=== PATIENT | female | born 1955 | race Caucasian/White ===

== ENCOUNTER 2016-12-16 15:36 | Emergency (ER) | payer BC, MEDICARE ==
[2016-12-16 15:43] VITALS: BP 149/84; RESP 22; TEMP 97.8
[2016-12-16] MEDS ORDERED: methylPREDNISolone SOD SUCCI 125 MG/2 ML VIAL IV STA (16:09)
[2016-12-16] MEDS ORDERED: ASPIRIN 325 MG TAB PO STA (16:09)
[2016-12-16] MEDS ORDERED: IPRATROPIUM-ALBUTEROL 3 ML NEB INHALATION STA (16:09)
--- NOTE | 2016-12-16 16:36 | ED ---
General Adult HPI - General Chief complaint: Shortness of Breath Stated complaint: LEOLA Source: patient Mode of arrival: ambulatory Limitations: no limitations - History of Present Illness Initial comments: 61-year-old female with past medical history of asthma presented for evaluation of shortness of breath and wheezes. She states that her symptoms have progressively been worsening over the last month but it acutely worsened over the last couple days. She has tried her breathing treatments at home without any relief. She denies any associated chest pain, recent surgeries, lower extremity cramping swelling or erythema, hemoptysis, or long distance travel. She further states that her associated cough is nonproductive and she has no URI symptoms. - Related Data Home Medications Medication Instructions Recorded Confirmed Albuterol Inhaler [Ventolin 1 - 2 puff INHALATION RT-QID PRN 07/07/14 12/16/16 Inhaler] Albuterol Nebulized [Ventolin 2.5 mg INHALATION RT-QID 12/22/14 12/16/16 Nebulized] Budesonide [Pulmicort] 0.5 mg INHALATION RT-BID 12/22/14 12/16/16 Biotin 5 mg PO DAILY 12/16/16 12/16/16 Ipratropium Nebulized [Atrovent 0.5 mg INHALATION RT-TID 12/16/16 12/16/16 Nebulized] Levothyroxine Sodium [Synthroid] 137 mcg PO DAILY 12/16/16 12/16/16 Montelukast [Singulair] 10 mg PO HS 12/16/16 12/16/16 Morphine Sulfate [Ms Contin] 30 mg PO Q8HR 12/16/16 12/16/16 Valerian Root 100 mg PO HS 12/16/16 12/16/16 tiZANidine [Zanaflex] 4 mg PO Q6H PRN 12/16/16 12/16/16 Previous Rx's Medication Instructions Recorded Doxycycline Hyclate 100 mg PO BID #14 tab 12/16/16 predniSONE 50 mg PO DAILY #5 tab 12/16/16 Allergies Allergy/AdvReac Type Severity Reaction Status Date / Time No Known Allergies Allergy Verified 12/16/16 16:21 Review of Systems ROS Statement: Those systems with pertinent positive or pertinent negative responses have been documented in the HPI. ROS Other: All systems not noted in ROS Statement are negative. Constitutional: Denies: fever, chills Eyes: Denies: eye pain, vision change ENT: Denies: ear pain, throat pain Respiratory: Reports: cough, dyspnea, wheezes. Denies: hemoptysis, stridor Cardiovascular: Denies: chest pain, palpitations Endocrine: Denies: fatigue, polydipsia, polyuria Gastrointestinal: Denies: abdominal pain, nausea, vomiting Genitourinary: Denies: urgency, dysuria Musculoskeletal: Denies: back pain, arthralgia Skin: Denies: rash, lesions Neurological: Denies: headache, weakness Psychiatric: Denies: anxiety, depression Past Medical History Past Medical History: Asthma, Osteoarthritis (OA), Thyroid Disorder Additional Past Medical History / Comment(s): varicose veins, hx migraines, ulcerative colitis, occ uses a cane, History of Any Multi-Drug Resistant Organisms: None Reported Past Surgical History: Back Surgery, Section, Hysterectomy, Orthopedic Surgery Additional Past Surgical History / Comment(s): lew carpal tunnel,neck and back surgeries, CAGE ON BACK, ARTHROSCOPY RIGHT KNEE, PAIN CLINIC PROCEDURES ([facility]), TOTAL RIGHT KNEE Past Anesthesia/Blood Transfusion Reactions: No Reported Reaction Past Psychological History: No Psychological Hx Reported Smoking Status: Former smoker Past Alcohol Use History: Occasional Past Drug Use History: None Reported - Past Family History Mother Family Medical History: Cancer Additional Family Medical History / Comment(s): MELANOMA General Exam Limitations: no limitations General appearance: alert, in no apparent distress Head exam: Present: atraumatic, normocephalic, normal inspection Eye exam: Present: normal appearance, PERRL, EOMI. Absent: scleral icterus, conjunctival injection, periorbital swelling ENT exam: Present: normal exam, mucous membranes moist Neck exam: Present: normal inspection. Absent: tenderness, meningismus, lymphadenopathy Respiratory exam: Present: wheezes. Absent: respiratory distress, rhonchi, stridor, chest wall tenderness, accessory muscle use, decreased breath sounds, prolonged expiratory Cardiovascular Exam: Present: regular rate, normal rhythm, normal heart sounds. Absent: systolic murmur, diastolic murmur, rubs, gallop, clicks GI/Abdominal exam: Present: soft, normal bowel sounds. Absent: distended, tenderness, guarding, rebound, rigid Rectal exam: Present: deferred Extremities exam: Present: normal inspection, full ROM, normal capillary refill. Absent: tenderness, pedal edema, joint swelling, calf tenderness Back exam: Present: normal inspection Neurological exam: Present: alert, oriented X3, CN II-XII intact Psychiatric exam: Present: normal affect, normal mood Skin exam: Present: warm, dry, intact, normal color. Absent: rash Course Vital Signs 12/16/16 12/16/16 12/16/16 15:40 16:59 17:15 Temperature 97.8 F Pulse Rate 93 57 L 60 Respiratory 22 Rate Blood Pressure 149/84 O2 Sat by Pulse 94 L Oximetry EKG Findings - EKG Comments: EKG Findings:: Normal sinus rhythm with a ventricular rate of 96, CHRISTOPHER 162, QRS 76, QT/QTC 344/434 Medical Decision Making - Medical Decision Making 7-year-old female with past medical history of asthma presented for evaluation of shortness of breath and wheezing that has gradually been worsening over the last month but acutely worsened over the last couple days. These have been also trying to her home breathing treatment therapies. On physical examination she has bilateral wheezing throughout lung barajas. There is no accessory muscle usage and the patient does not appear to be in distress. She was giving multiple breathing treatments and steroids and labs revealed no significant abnormalities. Chest x-ray showed no acute process. The patient was reevaluated and breathing treatments had marketed improvement in her respiratory status. She was informed of all results and through shared decision making it was determined that she would be discharged with instructions to follow-up with her primary care physician but to return if her symptoms should worsen or persist. The patient acknowledged an understanding of this information and agreed with this plan of care. - Lab Data Result diagrams: 12/16/16 16:34 12/16/16 16:34 Lab Results 12/16/16 12/16/16 12/16/16 Range/Units 16:34 16:34 16:34 WBC 9.2 (3.8-10.6) k/uL RBC 4.49 (3.80-5.40) m/uL Hgb 14.5 (11.4-16.0) gm/dL Hct 42.4 (34.0-46.0) % MCV 94.5 (80.0-100.0) fL MCH 32.3 (25.0-35.0) pg MCHC 34.2 (31.0-37.0) g/dL RDW 13.1 (11.5-15.5) % Plt Count 376 (150-450) k/uL Neutrophils % 54 % Lymphocytes % 30 % Monocytes % 5 % Eosinophils % 8 % Basophils % 1 % Neutrophils # 5.0 (1.3-7.7) k/uL Lymphocytes # 2.7 (1.0-4.8) k/uL Monocytes # 0.4 (0-1.0) k/uL Eosinophils # 0.7 (0-0.7) k/uL Basophils # 0.1 (0-0.2) k/uL Sodium 142 (137-145) mmol/L Potassium 4.0 (3.5-5.1) mmol/L Chloride 107 (98-107) mmol/L Carbon Dioxide 23 (22-30) mmol/L Anion Gap 12 mmol/L BUN 16 (7-17) mg/dL Creatinine 0.70 (0.52-1.04) mg/dL Est GFR (MDRD) Af Amer >60 (>60 ml/min/1.73 sqM) Est GFR (MDRD) Non-Af >60 (>60 ml/min/1.73 sqM) Glucose 116 H (74-99) mg/dL Calcium 9.5 (8.4-10.2) mg/dL Troponin I (0.000-0.034) ng/mL NT-Pro-B Natriuret Pep 64 pg/mL Influenza Type A RNA (Not Detectd) Influenza Type B (PCR) (Not Detectd) 12/16/16 12/16/16 Range/Units 16:34 16:34 WBC (3.8-10.6) k/uL RBC (3.80-5.40) m/uL Hgb (11.4-16.0) gm/dL Hct (34.0-46.0) % MCV (80.0-100.0) fL MCH (25.0-35.0) pg MCHC (31.0-37.0) g/dL RDW (11.5-15.5) % Plt Count (150-450) k/uL Neutrophils % % Lymphocytes % % Monocytes % % Eosinophils % % Basophils % % Neutrophils # (1.3-7.7) k/uL Lymphocytes # (1.0-4.8) k/uL Monocytes # (0-1.0) k/uL Eosinophils # (0-0.7) k/uL Basophils # (0-0.2) k/uL Sodium (137-145) mmol/L Potassium (3.5-5.1) mmol/L Chloride (98-107) mmol/L Carbon Dioxide (22-30) mmol/L Anion Gap mmol/L BUN (7-17) mg/dL Creatinine (0.52-1.04) mg/dL Est GFR (MDRD) Af Amer (>60 ml/min/1.73 sqM) Est GFR (MDRD) Non-Af (>60 ml/min/1.73 sqM) Glucose (74-99) mg/dL Calcium (8.4-10.2) mg/dL Troponin I <0.012 (0.000-0.034) ng/mL NT-Pro-B Natriuret Pep pg/mL Influenza Type A RNA Not Detected (Not Detectd) Influenza Type B (PCR) Not Detected (Not Detectd) Disposition Clinical Impression: Asthma exacerbation, Wheezing Disposition: HOME SELF-CARE Condition: Stable Instructions: Asthma (ED) Additional Instructions: Please use medication as discussed. Please follow up with family doctor if symptoms have not improved over the next two days. Please return to the emergency room if your symptoms increase or worsen or for any other concerns. Prescriptions: Doxycycline Hyclate 100 mg PO BID #14 tab predniSONE 50 mg PO DAILY #5 tab Referrals: Franco Lagunas MD [Primary Care Provider] - 1-2 days Time of Disposition: 18:07
[2016-12-16 16:41] LABS: Basophils # (A) 0.1 k/uL (0-0.2); Basophils % (A) 1 %; CH 32.5; CHCM 34.6; Eosinophils # (A) 0.7 k/uL (0-0.7); Eosinophils % (A) 8 %; HCT 42.4 % (34.0-46.0); HDW 2.75; HGB 14.5 gm/dL (11.4-16.0); Luc # (Auto) 0.25; Luc % (Auto) 3; Lymphocytes # (A) 2.7 k/uL (1.0-4.8); Lymphocytes % (A) 30 %; MCH 32.3 pg (25.0-35.0); MCHC 34.2 g/dL (31.0-37.0); MCV 94.5 fL (80.0-100.0); Monocytes # (A) 0.4 k/uL (0-1.0); Monocytes % (A) 5 %; Neutrophils % (A) 54 %; RBC 4.49 m/uL (3.80-5.40); RDW 13.1 % (11.5-15.5); WBC 9.2 k/uL (3.8-10.6); WBC (Perox) 9.36
--- NOTE | 2016-12-16 16:44 | XR ---
EXAMINATION TYPE: XR chest 2V DATE OF EXAM: 12/16/2016 4:41 PM COMPARISON: NONE HISTORY: Short of breath TECHNIQUE: Frontal and lateral views of the chest are obtained. FINDINGS: Heart and mediastinum are normal. Lungs are clear. Diaphragm is normal. Cervical spine fus ion surgery is noted. There is no pleural effusion. IMPRESSION: No active cardiopulmonary disease.
[2016-12-16 16:51] LABS: Anion Gap 12 mmol/L; Blood Urea Nitrogen 16 mg/dL (7-17); Calcium 9.5 mg/dL (8.4-10.2); Carbon Dioxide 23 mmol/L (22-30); Chloride 107 mmol/L (98-107); Glucose 116 mg/dL (74-99); Non-African American GFR(MDRD) >60 (>60 ml/min/1.73 sqM); Sodium 142 mmol/L (137-145)
[2016-12-16 17:16] VITALS: PULSE 60
== END 2016-12-16 18:16 | disposition home or self-care (01) ==
LOC: EC 15:36
DX: J45.901 Unspecified asthma with (acute) exacerbation (principal); E07.9 Disorder of thyroid, unspecified; Z79.51 Long term (current) use of inhaled steroids; Z79.899 Other long term (current) drug therapy; Z87.891 Personal history of nicotine dependence
CPT/HCPCS: 99285; 96374; 36415; 94640; 93005; 83880; 80048; 84484; 85025; 87502; 71020; J2930

== ENCOUNTER → 2017-09-09 | Outpatient (CLI) | payer BC, MEDICARE | END | disposition home or self-care (01) | LOC: RADMRIMAIN 08:38 | PROVIDERS: ATTEND Orthopaedic Surgery | DX: Z53.9 Procedure and treatment not carried out, unspecified reason (principal) ==

== ENCOUNTER 2017-10-30 07:31 | Day surgery (SDC) | payer BC, MEDICARE ==
[2017-10-25 16:00] VITALS: BMI 30.9
--- NOTE | 2017-10-29 14:02 | HP ---
HISTORY AND PHYSICAL DATE OF SERVICE: 10/30/2017 Lida Galarza is a 62-year-old patient seen with progressive right shoulder pain. Treatment options were discussed. She elected to proceed with right shoulder arthroscopy. Consent was obtained. Medical clearance was provided by Dr. Franco Lagunas. PAST MEDICAL HISTORY: Hypothyroidism, asthma. PAST SURGICAL HISTORY: Abdominoplasty, section, right knee arthroscopy. DAILY MEDICATIONS: 1. Synthroid. 2. Morphine. ALLERGIES: None reported. SOCIAL HISTORY: Patient denies current tobacco use. PHYSICAL EXAMINATION EVALUATION RIGHT SHOULDER: Flexion 80 degrees, abduction 70 degrees, external rotation is 30 degrees with weakness. Tenderness along the anterolateral acromion rotator cuff insertion site. Impingement sign positive at 90 degrees. Drop-arm sign is positive. Distal neurovascular exam is intact. RIGHT SHOULDER RADIOGRAPHS: Revealed a type 2 anterior acromion. Cystic changes of the tuberosity. IMPRESSION: 1. Right shoulder impingement with rotator cuff tear. 2. Hypothyroidism. 3. Asthma. PLAN: Right shoulder arthroscopy with subacromial decompression, possible arthroscopic rotator cuff repair and debridement. MMODL / IJN: [id number] /
[~2017-10-30 07:31] MED LIST: DEXAMETHASONE SOD PHOSPHATE 10 MG/ML 1 ML VIAL IV ONE; HYDROmorphone 0.5 MG/0.5 ML SYRINGE IVP PRN; LACTATED RINGERS 1,000 ML IV SCH; MIDAZOLAM 2 MG/2 ML VIAL IV PRN; ONDANSETRON 4 MG/2 ML VIAL IVP ONE; ceFAZolin IN SWFI 2 GM/20 ML SYRINGE IVP ONE
[2017-10-30] MEDS ORDERED: LIDOCAINE 1% 20 ML VIAL (10MG/ML) FOR IV START INTRADERMA ONE (08:10)
[2017-10-30] MEDS ORDERED: fentaNYL (PF) 50 MCG/ML 2 ML AMP IV ONE (08:43)
--- NOTE | 2017-10-30 08:49 | P.ONQ ---
Anesthesiology Proc Note - PNB - Peripheral Nerve Block Performed Right Interscalene Single Time Out Performed: Yes (8:43am) Procedure Start Time: 08:44 Procedure Stop Time: 08:56 Indication: Acute Post-Operative Pain, Requested by physician Sedation Type: Sedate with meaningful contact maintained Preparation: Sterile Prep Position: Supine Catheter: None Needle Types: Facet Needle Size: 50mm (2") Needle Gauge: 20 Technique: Ultrasound (15 mls of Ropivacaine 0.5% + 15 mls of Lidocaine with Epi) Adjunct: Epinephrine (see comment for dilution ratio) Blood Aspirated: No Pain Paresthesia on Injection Noted: No Resistance on Injection: Normal Events: Uneventful and Well Tolerated
[2017-10-30] MEDS ORDERED: LIDOCAINE 1% INJ 10MG/ML (20 ML MDV) ONE (10:38)
[2017-10-30] MEDS ORDERED: MIDAZOLAM 2 MG/2 ML VIAL ONE (10:38)
[2017-10-30] MEDS ORDERED: SUCCINYLCHOLINE CHLORIDE 100 MG/5 ML SYR IV ONE (10:38)
[2017-10-30] MEDS ORDERED: PROPOFOL 10 MG/ML 20 ML VIAL IV ONE (10:38)
[2017-10-30] MEDS ORDERED: ROCURONIUM BROMIDE 10 MG/ML 10 ML VIAL IV ONE (10:38)
[2017-10-30] MEDS ORDERED: NEOSTIGMINE 1 MG/ML 10 ML VIAL ONE (10:38)
[2017-10-30] MEDS ORDERED: LIDOCAINE 2%-EPI 1:100,000 20 ML VIAL ONE (10:38)
[2017-10-30] MEDS ORDERED: ROPIVACAINE 5 MG/ML 30 ML VIAL ONE (10:38)
[2017-10-30] MEDS ORDERED: GLYCOPYRROLATE 0.2 MG/ML 2 ML VIAL ONE (10:38)
[2017-10-30] MEDS ORDERED: LACTATED RINGERS 1,000 ML IV ONE (11:44)
--- NOTE | 2017-10-30 12:22 | P.OP ---
Date of Procedure: 10/30/17 Preoperative Diagnosis: Right shoulder impingement Postoperative Diagnosis: 1. Right shoulder rotator cuff tear 2. Right shoulder impingement 3. Right shoulder partial long head biceps tendon tear 4. Right shoulder superficial superior labral tear Procedure(s) Performed: 1. Right shoulder arthroscopic rotator cuff repair 2. Right shoulder arthroscopic subacromial decompression 3. Right shoulder arthroscopic biceps tenotomy 4. Right shoulder arthroscopic debridement labral tear Implants: 2-peek anchors Anesthesia: GETA, regional (Interscalene block) Surgeon: Ollie Amado Clod Puller #1: Matthew Jefferson Estimated Blood Loss (ml): 10 Pathology: none sent Condition: stable Disposition: PACU Indications for Procedure: 62-year-old patient seen with progressive right shoulder pain. After treatment options were discussed, she elected to proceed with arthroscopy. Operative Findings: see description of procedure Description of Procedure: Patient underwent a shoulder block by department of anesthesia. The patient was then taken to the operative suite. The patient underwent a general anesthetic by the department of anesthesia. The patient was placed into a lateral position and secured. There was appropriate padding of the bony prominence. Right shoulder was then prepped and draped in normal sterile orthopedic fashion. We placed the extremity in 10 pounds of longitudinal traction. A posterior incision was now made for a posterior working portal site. The trocar and cannula were inserted into the glenohumeral joint. Arthroscopy was initiated. Spinal needle was now inserted anteriorly, to ascertain the anterior working portal site. An incision was now made in that area, a trocar was inserted followed by a probe. There was superficial tearing of the superior labrum. Partial tearing long head biceps tendon. Mild grade 1 chondromalacia changes of the humeral head with no osteochondral tears. The anterior, inferior and posterior labrum were intact. I performed an arthroscopic biceps tenotomy. I debrided the superficial labral tear down to stable tissue. The residual labrum was found to be stable. Instruments were now removed from the glenohumeral joint. Utilizing the posterior working portal site, the trocar and cannula were inserted into the subacromial space. Arthroscopy initiated. I made an incision 2 fingerbreadths lateral to the acromion. I introduced my trocar followed by my ArthroCare ablator. I now began ablating thick subacromial bursal tissue, which exposed the undersurface of the anterior acromion. This was diminished subacromial space. There was a very prominent anterior acromion. A motorized bur was introduced and a subacromial decompression was performed. I also excised some osteophytes off the inferior aspect of the distal clavicle. The AC joint was visualized and noted to be moderately arthritic, not enough to warrant Juany procedure. I turned my attention to the rotator cuff tendon. There was about a 1 cm tear along the distal supraspinatus area. I debrided the margins down to stable tissue. Once the area was debrided down to good stable tendon tissue the defect measured 1.5-2 cm. It was freely mobile over the footprint. I abraded the footprint with a motorized bur. I introduced 2 everted mattress sutures with good bites of rotator cuff tendon. Once the pulsatile footprint and notices central area that there would be a dogear. I passed the suture loop centrally. I pull the tendon the footprint repair that with one anchor laterally. I then pulled the other 4 limbs of suture over the footprint introduced additional anchor laterally. The compressive tendon along the footprint very nicely. Residual suture limbs were clipped. The repair was probed and found to be stable. I injected 1 mL of UCT intra-articular. Instruments now removed from the portal sites. All portal sites were approximated with nylon suture. Sterile dressings were applied followed by a shoulder immobilizer. Fabian BROOKS assisted with the procedure. The patient was awakened, transferred to a bed, and taken to recovery in stable condition.
[2017-10-30 12:24] VITALS: RESP 16; TEMP 98.6
[2017-10-30] MEDS: MORPHINE SULFATE 4 MG/ML SYRINGE IVP PRN ×3 (12:36→13:13)
[2017-10-30 14:05] VITALS: BP 166/89; PULSE 75
== END 2017-10-30 14:17 | disposition home or self-care (01) ==
LOC: OR 07:31
PROVIDERS: ATTEND Orthopaedic Surgery
DX: M75.101 Unspecified rotator cuff tear or rupture of right shoulder, not specified as traumatic (principal); M75.41 Impingement syndrome of right shoulder; S46.111A Strain of muscle, fascia and tendon of long head of biceps, right arm, initial encounter; S43.401A Unspecified sprain of right shoulder joint, initial encounter; X58.XXXA Exposure to other specified factors, initial encounter; M25.711 Osteophyte, right shoulder; J44.9 Chronic obstructive pulmonary disease, unspecified; E03.9 Hypothyroidism, unspecified; G89.4 Chronic pain syndrome; M19.90 Unspecified osteoarthritis, unspecified site; K21.9 Gastro-esophageal reflux disease without esophagitis; Z98.890 Other specified postprocedural states; Z79.890 Hormone replacement therapy; Z79.891 Long term (current) use of opiate analgesic; Z79.899 Other long term (current) drug therapy; Z79.51 Long term (current) use of inhaled steroids
CPT/HCPCS: 64415

== ENCOUNTER → 2018-02-13 | Outpatient (CLI) | payer BC, MEDICARE ==
--- NOTE | 2018-02-13 09:21 | US ---
EXAMINATION TYPE: US thyroid st tissue head/neck DATE OF EXAM: 02/13/2018 COMPARISON: US thyroid June 22, 2016 CLINICAL HISTORY: R13.10 Swallowing Difficulty, E03.9 Primary hypoth. Patient stated has difficulty s wallowing, hoarse voice, neck fullness GLAND SIZE: Right Lobe: 3.1 x 1.5 x 2.1 cm Overall Parenchyma: heterogenous Left Lobe: 3.8 x 1.2 x 2.0 cm Overall Parenchyma: heterogeneous Isthmus Thickness: 0.4 cm NODULES RIGHT: # of nodules measured on right: 0 LEFT: # of nodules measured on left: 0 ISTHMUS: # of nodules measured in the isthmus: 0 Lobular border and heterogeneous gland is noted bilaterally without any discreet nodule. Bilateral neck scanned, no evidence of lymphadenopathy. IMPRESSION: Heterogeneous small sized thyroid without discrete solid or cystic nodule is redemonstrated. No signi ficant change from prior.
[2018-02-13 09:40] LABS: T4, Free (Free Thyroxine) 1.5 ng/dL (0.78-2.19)
== END ==
LOC: RADUSWWP 08:13
PROVIDERS: ATTEND Internal Medicine Endocrinology, Diabetes & Metabolism
DX: R13.10 Dysphagia, unspecified (principal); E03.9 Hypothyroidism, unspecified
CPT/HCPCS: 36415; 76536; 84439; 84443

== ENCOUNTER → 2018-08-27 | Outpatient (CLI) | payer BC, MEDICARE | END | disposition home or self-care (01) | LOC: LABWHC1 11:29 | PROVIDERS: ATTEND Internal Medicine Critical Care Medicine | DX: J45.909 Unspecified asthma, uncomplicated (principal) | CPT/HCPCS: 36415; 82785; 85008 ==

== ENCOUNTER 2020-07-10 20:40 | Inpatient (IN) | payer BC, MEDICARE ==
--- NOTE | 2020-07-10 21:21 | ED ---
Fever HPI - General Chief Complaint: Shortness of Breath Stated Complaint: + COVID Time Seen by Provider: 07/10/20 21:19 Source: patient, RN notes reviewed, old records reviewed Mode of arrival: ambulatory Limitations: no limitations - History of Present Illness Initial Comments: This is a 64-year-old female DF she has have fever in known history of a p ositive coronavirus. Patient sent in by primary care and tarry to symptoms being short of breath. Patient also has underlying asthma MD Complaint: fever, weakness -: days(s) Temperature Source: subjective Context: multiple patients with similar symptoms Associated Symptoms: chills, rigors, nasal congestion, sore throat, shortness of breath Treatments Prior to Arrival: none, Acetaminophen, Ibuprofen - Related Data Home Medications Medication Instructions Recorded Confirmed Albuterol Nebulized [Ventolin 2.5 mg INHALATION RT-QID PRN 12/22/14 07/10/20 Nebulized] Montelukast [Singulair] 10 mg PO HS 12/16/16 07/10/20 Ergocalciferol (Vitamin D2) 50,000 unit PO FR 10/25/17 07/10/20 [Vitamin D2] Levothyroxine Sodium [Synthroid] 150 mcg PO QAM 09/08/19 07/10/20 Valerian Root 100 - 400 mg PO HS PRN 09/08/19 07/10/20 Albuterol Sulfate [Ventolin HFA] 2 puff INHALATION RT-Q6H PRN 07/10/20 07/10/20 Budesonide-Formot 160-4.5 Mcg 2 puff INHALATION RT-BID PRN 07/10/20 07/10/20 [Symbicort 160-4.5 Mcg Inhaler] Fluticasone/Salmeterol [Advair 1 puff INHALATION RT-BID 07/10/20 07/10/20 500-50 Diskus] Morphine Sulfate [Morphine Sulfate 15 mg PO TID PRN 07/10/20 07/10/20 ER] diphenhydrAMINE [Benadryl] 25 mg PO HS 07/10/20 07/10/20 tiZANidine HCL [Zanaflex] 4 mg PO Q8HR PRN 07/10/20 07/10/20 Previous Rx's Medication Instructions Recorded Ascorbic Acid [Vitamin C] 500 mg PO DAILY tab 07/13/20 Azithromycin [Zithromax] 500 mg PO DAILY #4 tab 07/13/20 Zinc Sulfate [Orazinc] 220 mg PO DAILY cap 07/13/20 dexAMETHasone [Hexadrol] 6 mg PO DAILY #7 tablet 07/13/20 predniSONE 2.5 mg PO DAILY #0 07/13/20 Allergies Allergy/AdvReac Type Severity Reaction Status Date / Time vitamin E (d-alpha Allergy Rash/Hives Verified 07/10/20 22:36 tocopherol) Review of Systems ROS Statement: Those systems with pertinent positive or pertinent negative responses have been documented in the HPI. ROS Other: All systems not noted in ROS Statement are negative. Past Medical History Past Medical History: Asthma, Osteoarthritis (OA), Thyroid Disorder Additional Past Medical History / Comment(s): Varicose veins, hx migraines 20 yrs ago, hx ulcerative colitis, occ uses a cane. constipation, told kidney stones in past, PMR(polymyalgia rheumatica)-left hand and index finger swollen, rectal bleeding for past couple months-(2-3 times) History of Any Multi-Drug Resistant Organisms: None Reported Past Surgical History: Back Surgery, Section, Hysterectomy, Joint Replacement, Orthopedic Surgery, Tonsillectomy Additional Past Surgical History / Comment(s): lew carpal tunnel, neck surgery, 4 back surgeries/fusion-CAGE ON BACK, ARTHROSCOPY RIGHT KNEE, PAIN CLINIC PROCEDURES , TOTAL RIGHT KNEE., arthroscopic rt shoulder, Past Anesthesia/Blood Transfusion Reactions: No Reported Reaction Past Psychological History: No Psychological Hx Reported Smoking Status: Former smoker Past Alcohol Use History: Rare Past Drug Use History: Marijuana - Past Family History Brother(s) Family Medical History: Cancer Additional Family Medical History / Comment(s): Melanoma Sister(s) Family Medical History: Cancer Additional Family Medical History / Comment(s): Cervical Cancer Mother Family Medical History: Cancer Additional Family Medical History / Comment(s): MELANOMA Father Family Medical History: COPD General Exam Limitations: no limitations General appearance: alert, in no apparent distress, anxious Head exam: Present: atraumatic, normocephalic, normal inspection Eye exam: Present: normal appearance, PERRL, EOMI. Absent: scleral icterus, conjunctival injection, periorbital swelling ENT exam: Present: normal exam, mucous membranes moist Neck exam: Present: normal inspection. Absent: tenderness, meningismus, lymphadenopathy Respiratory exam: Present: respiratory distress, wheezes, accessory muscle use, decreased breath sounds, prolonged expiratory. Absent: rales, rhonchi, stridor Cardiovascular Exam: Present: regular rate, normal rhythm, normal heart sounds. Absent: systolic murmur, diastolic murmur, rubs, gallop, clicks GI/Abdominal exam: Present: soft, normal bowel sounds. Absent: distended, tenderness, guarding, rebound, rigid Extremities exam: Present: normal inspection, full ROM, normal capillary refill. Absent: tenderness, pedal edema, joint swelling, calf tenderness Back exam: Present: normal inspection Neurological exam: Present: alert, oriented X3, CN II-XII intact Psychiatric exam: Present: normal affect, normal mood Skin exam: Present: warm, dry, intact, normal color. Absent: rash Course Vital Signs 07/10/20 07/10/20 07/11/20 20:53 21:44 06:08 Temperature 100.1 F H Pulse Rate 85 79 Respiratory 22 24 18 Rate Blood Pressure 143/83 142/79 O2 Sat by Pulse 90 L 97 Oximetry 07/11/20 07/11/20 07/11/20 09:01 09:02 17:23 Temperature 99.0 F 99.0 F Pulse Rate 71 72 Respiratory 18 18 18 Rate Blood Pressure 134/77 141/75 O2 Sat by Pulse 95 92 L Oximetry - Reevaluation(s) Reevaluation #1: Medical records reviewed No improvement of symptoms here in the ER Spoke with patient regarding findings and questions are answered Patient still short of breath Medical Decision Making - Medical Decision Making 64 female DF for severe shortness of breath asthma with coronavirus. Patient admitted for breathing treatments and cardiopulmonary resuscitation - Lab Data Result diagrams: 07/10/20 21:55 07/10/20 21:55 Lab Results 07/10/20 07/10/20 07/10/20 Range/Units 21:55 21:55 21:55 WBC 5.6 (3.8-10.6) k/uL RBC 4.15 (3.80-5.40) m/uL Hgb 13.6 (11.4-16.0) gm/dL Hct 40.2 (34.0-46.0) % MCV 97.0 (80.0-100.0) fL MCH 32.9 (25.0-35.0) pg MCHC 33.9 (31.0-37.0) g/dL RDW 12.5 (11.5-15.5) % Plt Count 228 (150-450) k/uL Neutrophils % 61 % Lymphocytes % 30 % Monocytes % 5 % Eosinophils % 2 % Basophils % 2 % Neutrophils # 3.4 (1.3-7.7) k/uL Lymphocytes # 1.7 (1.0-4.8) k/uL Monocytes # 0.3 (0-1.0) k/uL Eosinophils # 0.1 (0-0.7) k/uL Basophils # 0.1 (0-0.2) k/uL PT 9.5 (9.0-12.0) sec INR 0.9 (<1.2) APTT 23.8 (22.0-30.0) sec Sodium 139 (137-145) mmol/L Potassium 4.2 (3.5-5.1) mmol/L Chloride 106 (98-107) mmol/L Carbon Dioxide 28 (22-30) mmol/L Anion Gap 5 mmol/L BUN 22 H (7-17) mg/dL Creatinine 0.68 (0.52-1.04) mg/dL Est GFR (CKD-EPI)AfAm >90 (>60 ml/min/1.73 sqM) Est GFR (CKD-EPI)NonAf >90 (>60 ml/min/1.73 sqM) Glucose 110 H (74-99) mg/dL Plasma Lactic Acid Boyd (0.7-2.0) mmol/L Calcium 8.4 (8.4-10.2) mg/dL Magnesium 1.9 (1.6-2.3) mg/dL Ferritin 118.3 (10.0-291.0) ng/mL Total Bilirubin 0.3 (0.2-1.3) mg/dL AST 42 H (14-36) U/L ALT 31 (4-34) U/L Alkaline Phosphatase 91 (38-126) U/L Lactate Dehydrogenase 538 (313-618) U/L C-Reactive Protein 19.2 H (<10.0) mg/L Total Protein 6.6 (6.3-8.2) g/dL Albumin 3.7 (3.5-5.0) g/dL Procalcitonin (0.02-0.09) ng/mL 07/10/20 07/10/20 Range/Units 21:55 21:55 WBC (3.8-10.6) k/uL RBC (3.80-5.40) m/uL Hgb (11.4-16.0) gm/dL Hct (34.0-46.0) % MCV (80.0-100.0) fL MCH (25.0-35.0) pg MCHC (31.0-37.0) g/dL RDW (11.5-15.5) % Plt Count (150-450) k/uL Neutrophils % % Lymphocytes % % Monocytes % % Eosinophils % % Basophils % % Neutrophils # (1.3-7.7) k/uL Lymphocytes # (1.0-4.8) k/uL Monocytes # (0-1.0) k/uL Eosinophils # (0-0.7) k/uL Basophils # (0-0.2) k/uL PT (9.0-12.0) sec INR (<1.2) APTT (22.0-30.0) sec Sodium (137-145) mmol/L Potassium (3.5-5.1) mmol/L Chloride (98-107) mmol/L Carbon Dioxide (22-30) mmol/L Anion Gap mmol/L BUN (7-17) mg/dL Creatinine (0.52-1.04) mg/dL Est GFR (CKD-EPI)AfAm (>60 ml/min/1.73 sqM) Est GFR (CKD-EPI)NonAf (>60 ml/min/1.73 sqM) Glucose (74-99) mg/dL Plasma Lactic Acid Boyd 0.8 (0.7-2.0) mmol/L Calcium (8.4-10.2) mg/dL Magnesium (1.6-2.3) mg/dL Ferritin (10.0-291.0) ng/mL Total Bilirubin (0.2-1.3) mg/dL AST (14-36) U/L ALT (4-34) U/L Alkaline Phosphatase (38-126) U/L Lactate Dehydrogenase (313-618) U/L C-Reactive Protein (<10.0) mg/L Total Protein (6.3-8.2) g/dL Albumin (3.5-5.0) g/dL Procalcitonin 0.04 (0.02-0.09) ng/mL - EKG Data -: EKG Interpreted by Me (EKG is sinus rhythm 92 NC 166 QRS 76 QTC 413) Critical Care Time Critical Care Time: Yes Total Critical Care Time: 31 Disposition Clinical Impression: Asthma with acute exacerbation, COVID-19, Hypoxia Disposition: ADMITTED IP TO THIS HOSP Condition: Fair Is patient prescribed a controlled substance at d/c from ED?: No
--- NOTE | 2020-07-10 22:11 | XR ---
EXAMINATION TYPE: XR chest 1V portable DATE OF EXAM: 07/10/2020 COMPARISON: 07/10/2017 HISTORY: Short of breath TECHNIQUE: FINDINGS: There is some linear density left midlung. The other lung barajas are clear. Heart size is n ormal. There are no hilar masses. There is no pleural effusion. IMPRESSION: Left side mild subsegmental atelectasis or scarring. Normal heart. There is not a signifi cant change compared to old exam.
[2020-07-10 22:15] LABS: Basophils # (A) 0.1 k/uL (0-0.2); Basophils % (A) 2 %; Eosinophils # (A) 0.1 k/uL (0-0.7); Eosinophils % (A) 2 %; HCT 40.2 % (34.0-46.0); HGB 13.6 gm/dL (11.4-16.0); Lymphocytes # (A) 1.7 k/uL (1.0-4.8); Lymphocytes % (A) 30 %; MCH 32.9 pg (25.0-35.0); MCHC 33.9 g/dL (31.0-37.0); Mean Platelet Volume 7.5; Monocytes # (A) 0.3 k/uL (0-1.0); Monocytes % (A) 5 %; Neutrophils # (A) 3.4 k/uL (1.3-7.7); Neutrophils % (A) 61 %; Platelet Count 228 k/uL (150-450); RBC 4.15 m/uL (3.80-5.40); RDW 12.5 % (11.5-15.5); WBC 5.6 k/uL (3.8-10.6)
[2020-07-10 22:16] LABS: INR 0.9 (<1.2); Partial Thromboplastin Time 23.8 sec (22.0-30.0); Prothrombin Time 9.5 sec (9.0-12.0)
[2020-07-10 22:18] LABS: ALT 31 U/L (4-34); AST 42 U/L (14-36); African American GFR (CKD) >90 (>60 ml/min/1.73 sqM); Albumin 3.7 g/dL (3.5-5.0); Alkaline Phosphatase 91 U/L (38-126); Anion Gap 5 mmol/L; Blood Urea Nitrogen 22 mg/dL (7-17); C Reactive Protein 19.2 mg/L (<10.0); Calcium 8.4 mg/dL (8.4-10.2); Carbon Dioxide 28 mmol/L (22-30); Chloride 106 mmol/L (98-107); Glucose 110 mg/dL (74-99); LDH 538 U/L (313-618); Magnesium 1.9 mg/dL (1.6-2.3); Non-African American GFR(CKD) >90 (>60 ml/min/1.73 sqM); Potassium 4.2 mmol/L (3.5-5.1); Sodium 139 mmol/L (137-145); Total Bilirubin 0.3 mg/dL (0.2-1.3); Total Protein 6.6 g/dL (6.3-8.2)
[2020-07-10] MEDS ORDERED: ALBUTEROL HFA INHALER INHALATION STA (22:48)
[2020-07-10] MEDS ORDERED: DEXAMETHASONE SOD PHOSPHATE 10 MG/ML 1 ML VIAL IV STA (22:48)
[2020-07-10] MEDS: SODIUM CHLORIDE 0.9% 1,000 ML IV SCH (23:08)
[2020-07-11] MEDS: ALBUTEROL HFA INHALER INHALATION SCH ×4 (08:13→19:50)
[2020-07-11] MEDS ORDERED: tiZANidine 4 MG TAB PO PRN (09:20)
[2020-07-11] MEDS ORDERED: ALBUTEROL HFA INHALER INHALATION PRN (09:20)
--- NOTE | 2020-07-11 10:00 | P.HPIM ---
History of Present Illness H&P Date: 07/11/20 Chief Complaint: Severe dyspnea and shortness of breath, fever and chills, Covid 19 infectio 63-year-old female one of my office patient with multiple medical problem known to have history of advanced COPD history of hypothyroidism history of from hypertension chronic lower back pain and chronic pain syndrome was seen Dr. Chapman, pulmonary as an outpatient patient called the office with concern about exposure to Covid 19 and one of the restaurant and she was tested as an outpatient positive on Saturday. Patient's called last night with concern that she is having severe hypoxia shortness of breath with low pulse ox with increased cough and worsening GI symptoms. Patient was seen in the emergency department with mild hypoxia and mild symptoms, chest x-ray showed left-sided mild subsegmental atelectasis or scarring with normal heart there is no sign of change from an old exam still shows questionable of left lower lobe pneumonia. Patient marker for to Covid came back stable at this time. Patient was started on Decadron along with vitamins for the Covid coverage and started on Lovenox subcutaneous as an anticoagulation patient will be seen pulmonary we'll continue updraft treatment along with inhaler continue oxygen supplement and support. Review of Systems CONSTITUTIONAL: Well-developed no acute respiratory distress. EYES: No icterus sclerae, no conjunctivitis. EARS, NOSE, MOUTH, THROAT, and FACE: No sore throat, lymphadenopathy, carotid bruits or deformity. RESPIRATORY: Positive shortness of breath cough wheezes with recent Covid positive from this week. CARDIOVASCULAR: No CP, Palpitation, PND, Orthopnea, or angina. GASTROINTESTINAL: No Abd pain, Nausea or vomiting, no Diarrhea or constipation, No GI Bleed, no distention or masses. GENITOURINARY: Negative for Hematuria or UTI, no kidney stones. INTEGUMENT/BREAST: Negative for any muscular injury with mild osteoarthritis.. Generalized arthralgia and myalgia with severe back pain. HEMATOLOGIC/LYMPHATIC: Negative for bleed or purpura. MUSCULOSKELTAL: Negative for Myalgia or arthralgia. NEURLOGICAL: No LOC, Sz or syncope, blurred vision dizziness or abnormality.. BEHAVIORAL/PSYCH: Negative. ENDOCRINE: Negative. Past Medical History Past Medical History: Asthma, Osteoarthritis (OA), Thyroid Disorder Additional Past Medical History / Comment(s): Varicose veins, hx migraines 20 yrs ago, hx ulcerative colitis, occ uses a cane. constipation, told kidney stones in past, PMR(polymyalgia rheumatica)-left hand and index finger swollen, rectal bleeding for past couple months-(2-3 times) History of Any Multi-Drug Resistant Organisms: None Reported Past Surgical History: Back Surgery, Section, Hysterectomy, Joint Replacement, Orthopedic Surgery, Tonsillectomy Additional Past Surgical History / Comment(s): lew carpal tunnel, neck surgery, 4 back surgeries/fusion-CAGE ON BACK, ARTHROSCOPY RIGHT KNEE, PAIN CLINIC PROCEDURES , TOTAL RIGHT KNEE., arthroscopic rt shoulder, Past Anesthesia/Blood Transfusion Reactions: No Reported Reaction Past Psychological History: No Psychological Hx Reported Smoking Status: Former smoker Past Alcohol Use History: Rare Past Drug Use History: Marijuana - Past Family History Brother(s) Family Medical History: Cancer Additional Family Medical History / Comment(s): Melanoma Sister(s) Family Medical History: Cancer Additional Family Medical History / Comment(s): Cervical Cancer Mother Family Medical History: Cancer Additional Family Medical History / Comment(s): MELANOMA Medications and Allergies Home Medications Medication Instructions Recorded Confirmed Type Albuterol Nebulized [Ventolin 2.5 mg INHALATION RT-QID PRN 12/22/14 07/10/20 History Nebulized] Montelukast [Singulair] 10 mg PO HS 12/16/16 07/10/20 History Ergocalciferol (Vitamin D2) 50,000 unit PO FR 10/25/17 07/10/20 History [Vitamin D2] Levothyroxine Sodium [Synthroid] 150 mcg PO QAM 09/08/19 07/10/20 History Valerian Root 100 - 400 mg PO HS PRN 09/08/19 07/10/20 History Albuterol Sulfate [Ventolin HFA] 2 puff INHALATION RT-Q6H PRN 07/10/20 07/10/20 History Budesonide-Formot 160-4.5 Mcg 2 puff INHALATION RT-BID PRN 07/10/20 07/10/20 History [Symbicort 160-4.5 Mcg Inhaler] Fluticasone/Salmeterol [Advair 1 puff INHALATION RT-BID 07/10/20 07/10/20 History 500-50 Diskus] Morphine Sulfate [Morphine Sulfate 15 mg PO TID PRN 07/10/20 07/10/20 History ER] diphenhydrAMINE [Benadryl] 25 mg PO HS 07/10/20 07/10/20 History predniSONE 2.5 mg PO DAILY 07/10/20 07/10/20 History tiZANidine HCL [Zanaflex] 4 mg PO Q8HR PRN 07/10/20 07/10/20 History Allergies Allergy/AdvReac Type Severity Reaction Status Date / Time vitamin E (d-alpha Allergy Rash/Hives Verified 07/10/20 22:36 tocopherol) Physical Exam Vitals: Vital Signs Temp Pulse Resp BP Pulse Ox 07/11/20 09:02 18 07/11/20 09:01 99.0 F 71 18 134/77 95 07/11/20 06:08 79 18 142/79 97 07/10/20 21:44 24 07/10/20 20:53 100.1 F H 85 22 143/83 90 L Intake and Output 07/10/20 07/11/20 07/11/20 22:59 06:59 14:59 Other: Weight 81.647 kg General Appearance: Alert, cooperative, no distress, appears stated age. Neck HEENT: Supple, no lymphadenopathy, no thyroid enlargement, no carotid bruits. Lungs: Clear to auscultation without crackles or wheezes no rhonchi, no deformity. Chest Wall: Chest wall normal expansion with deep inspiration no tenderness and no deformity was found on exam, no costochondral pain or discomfort. Heart: Regular rate and rhythm, S1, S2 normal, no murmur, rub or gallop. Back: Symmetric, no curvature, ROM normal, no CVA tenderness. Abdomen: Soft, non-tender, bowel sounds active all four quadrants, no masses, no organomegaly. Extremities: Extremities normal, atraumatic, no cyanosis or edema. Pulses: 2+ and symmetric. Skin: Skin color, texture, tugor normal, no rashes or lesions. Neurologic: Alert oriented x3 cranial nerves II through XII intact, no motor deficit, no abnormal balance or gait. Results CBC & Chem 7: 07/10/20 21:55 07/10/20 21:55 Labs: Abnormal Lab Results - Last 24 Hours (Table) 07/10/20 Range/Units 21:55 BUN 22 H (7-17) mg/dL Glucose 110 H (74-99) mg/dL AST 42 H (14-36) U/L C-Reactive Protein 19.2 H (<10.0) mg/L Thrombosis Risk Factor Assmnt - DVT/VTE Prophylaxis DVT/VTE Prophylaxis: Pharmacologic Prophylaxis ordered, Mechanical Prophylaxis ordered Assessment and Plan Assessment: 1 severe dyspnea and shortness of breath: Patient be hospitalized continue c urrent management with antibiotics, Decadron, oxygen, pulmonary consultation. 2 left-sided pneumonia: Could be Covid addition to community-acquired pneumonia with patient history of COPD patient will be on azithromycin and Rocephin and whether she needs to be started on a Covid antiviral coverage will be left up to pulmonary. 3 Covid 19: Test was positive on Saturday and patient started having hypoxia and more symptom this time she'll be in the hospital for the next few days on Decadron and anticoagulation along with multivitamins antiviral medication to be evaluated decided by pulmonary. 4 advance COPD: Patient has been on prednisone along with Symbicort and DuoNeb continue medication. 5 chronic pain management: Has been on morphine sulfate 15 mg 3 times a day along with Zanaflex 4 mg every 8 hours. 6 hypothyroidism: Continue levothyroxine 150 g daily. 7 vitamin D deficiency: Remain on vitamin D 50,000 units every 2 weeks. 8 hyperglycemia: Accu-Chek with sliding scale coverage and be done. 9 GI prophylaxis: Patient be on Pepcid 20 mg daily. 10 DVT prophylaxis: Patient will be on Lovenox for milligrams subcutaneous daily. CODE STATUS: Full code. Admit patient to the inpatient service for more than 2 night stay.
[2020-07-11 10:20] LABS: Ferritin 118.3 ng/mL (10.0-291.0)
[2020-07-11] MEDS: dexAMETHasone 2 MG TAB PO SCH (10:40)
[2020-07-11] MEDS: ASCORBIC ACID 500 MG TAB PO SCH (10:40)
[2020-07-11] MEDS: ZINC SULFATE 220 MG CAP PO SCH (10:41)
[2020-07-11] MEDS: CHOLECALCIFEROL 1,000 UNIT TAB PO SCH (10:41)
[2020-07-11] MEDS ORDERED: LEVOTHYROXINE 75 MCG TAB PO STA (10:50)
[2020-07-11] MEDS: ENOXAPARIN 40 MG/0.4 ML SYRINGE SQ SCH (10:52)
[2020-07-11] MEDS: MORPHINE SULFATE ER 15 MG TABLET PO PRN ×2 (11:34→20:46)
[2020-07-11] MEDS: SODIUM CHLORIDE 0.9% 1,000 ML IV SCH ×2 (17:14→20:37)
[2020-07-11] MEDS: SYMBICORT 160-4.5 MCG INHALER INHALATION SCH (19:50)
[2020-07-11] MEDS ORDERED: FLUTICASONE INHALATION SCH (20:00)
[2020-07-11] MEDS ORDERED: SALMETEROL INHALATION SCH (20:00)
[2020-07-11] MEDS: diphenhydrAMINE 25 MG CAP PO SCH (20:38)
[2020-07-11] MEDS: MONTELUKAST 10 MG TAB PO SCH (20:38)
--- NOTE | 2020-07-11 23:19 | P.CONS ---
History of Present Illness - Reason for Consult Consult date: 07/11/20 Covid Requesting physician: Franco Lagunas - Chief Complaint Shortness of breath and cough x few days - History of Present Illness Patient is a 64-year-old female with a past medical history significant for advanced COPD hypothyroidism patient presented to the ER with concern for increasing shortness of breath and low O2 sats apparently the patient was at one of the restaurant where one of the patient tested positive for covid, patient is complaining of feeling weak and tired and no energy, the patient denies having any chest pain or shortness of breath with exertion patient also have a cough which is mild to moderate intensity no hemoptysis and no pleuritic chest pain some nausea but no vomiting no abdominal pain or diarrhea with this into the patient was evaluated by the ER physician on arrival to the ER, the patient did have low-grade fever 100.1 patient is currently satting 97% on room patient did have a normal white count with no lymphopenia, the patient did have a normal creatinine and AST is 42 CRP is 19.2 Procalcitonin was 0.04, patient is x-ray did not show any significant change compared oral exam patient has been admitted to the hospital, patient had been started on zinc dexamethasone Lovenox along with bronchodilator infection disease was consulted for further management Review of Systems Positive point has been mentioned in the HPI rest of the systems are negative Past Medical History Past Medical History: Asthma, Osteoarthritis (OA), Thyroid Disorder Additional Past Medical History / Comment(s): Polymyalgia rheumatica-has edema several places, generalized arthritis, migraines many years ago, ulcerative colitis, lower GI bleed, constipation, R leg varicosities. History of Any Multi-Drug Resistant Organisms: None Reported Past Surgical History: Back Surgery, Section, Hysterectomy, Joint Replacement, Orthopedic Surgery, Tonsillectomy Additional Past Surgical History / Comment(s): Multiple back surgeries/cage/fusion, cervical surgery, total R knee arthroplasty, R shoulder arthroscopic surgery, bilateral carpal tunnel releases, pain clinic procedures, colonoscopy. Past Anesthesia/Blood Transfusion Reactions: No Reported Reaction Smoking Status: Former smoker - Past Family History Brother(s) Family Medical History: Cancer Additional Family Medical History / Comment(s): Melanoma Sister(s) Family Medical History: Cancer Additional Family Medical History / Comment(s): Cervical Cancer Mother Family Medical History: Cancer, COPD Additional Family Medical History / Comment(s): MELANOMA Father Family Medical History: COPD Medications and Allergies Home Medications Medication Instructions Recorded Confirmed Type Albuterol Nebulized [Ventolin 2.5 mg INHALATION RT-QID PRN 12/22/14 07/10/20 History Nebulized] Montelukast [Singulair] 10 mg PO HS 12/16/16 07/10/20 History Ergocalciferol (Vitamin D2) 50,000 unit PO FR 10/25/17 07/10/20 History [Vitamin D2] Levothyroxine Sodium [Synthroid] 150 mcg PO QAM 09/08/19 07/10/20 History Valerian Root 100 - 400 mg PO HS PRN 09/08/19 07/10/20 History Albuterol Sulfate [Ventolin HFA] 2 puff INHALATION RT-Q6H PRN 07/10/20 07/10/20 History Budesonide-Formot 160-4.5 Mcg 2 puff INHALATION RT-BID PRN 07/10/20 07/10/20 History [Symbicort 160-4.5 Mcg Inhaler] Fluticasone/Salmeterol [Advair 1 puff INHALATION RT-BID 07/10/20 07/10/20 History 500-50 Diskus] Morphine Sulfate [Morphine Sulfate 15 mg PO TID PRN 07/10/20 07/10/20 History ER] diphenhydrAMINE [Benadryl] 25 mg PO HS 07/10/20 07/10/20 History predniSONE 2.5 mg PO DAILY 07/10/20 07/10/20 History tiZANidine HCL [Zanaflex] 4 mg PO Q8HR PRN 07/10/20 07/10/20 History Allergies Allergy/AdvReac Type Severity Reaction Status Date / Time vitamin E (d-alpha Allergy Rash/Hives Verified 07/10/20 22:36 tocopherol) Physical Exam Vitals: Vital Signs Temp Pulse Resp BP Pulse Ox 07/11/20 09:02 18 07/11/20 09:01 99.0 F 71 18 134/77 95 07/11/20 06:08 79 18 142/79 97 07/10/20 21:44 24 07/10/20 20:53 100.1 F H 85 22 143/83 90 L Intake and Output 07/11/20 07/11/20 07/11/20 06:59 14:59 22:59 Other: Weight 81.647 kg GENERAL DESCRIPTION: Middle-aged female lying in bed, no distress. No tachypnea or accessory muscle of respiration use. HEENT: Shows Pallor , no scleral icterus. Oral mucous membrane is dry. No pharyngeal erythema or thrush NECK: Trachea central, no thyromegaly. LUNGS: Unlabored breathing. Decreased intensity of breath sounds. No wheeze or crackle. HEART: S1, S2, regular rate and rhythm. No loud murmur ABDOMEN: Soft, no tenderness , guarding or rigidity, no organomegaly EXTREMITIES: No edema of feet. SKIN: No rash, no masses palpable. NEUROLOGICAL: The patient is awake, alert, oriented x3, mood and affect normal. Results CBC & Chem 7: 07/10/20 21:55 07/10/20 21:55 Labs: Abnormal Lab Results - Last 24 Hours (Table) 07/10/20 Range/Units 21:55 BUN 22 H (7-17) mg/dL Glucose 110 H (74-99) mg/dL AST 42 H (14-36) U/L C-Reactive Protein 19.2 H (<10.0) mg/L Assessment and Plan Assessment: 1- patient presented to the hospital with increasing shortness of breath or cough in this patient who did have low-grade fever however no significant hypoxemia patient did not have any lymphopenia and CRP that significantly elevated either and a chest x-ray was negative for any acute infiltrate (1) COVID-19 Current Visit: Yes Status: Acute Code(s): U07.1 - COVID-19 SNOMED Code(s): 037740260 Plan: 1- we will repeat her inflammatory markers in the morning and a repeat chest x- ray 2-patient to continue with Lovenox dexamethasone and zinc add Zithromax 3-droplet isolation and respiratory support We will follow on clinical condition and cultures to further adjust medication if needed Thank you for this consultation will follow this patient with you Time with Patient: Greater than 30
[2020-07-12] MEDS: SODIUM CHLORIDE 0.9% 1,000 ML IV SCH ×3 (04:43→22:07)
[2020-07-12] MEDS: LEVOTHYROXINE 75 MCG TAB PO SCH (05:18)
[2020-07-12] MEDS: ASCORBIC ACID 500 MG TAB PO SCH (07:56)
[2020-07-12] MEDS: ZINC SULFATE 220 MG CAP PO SCH (07:56)
[2020-07-12] MEDS: ENOXAPARIN 40 MG/0.4 ML SYRINGE SQ SCH (07:56)
[2020-07-12] MEDS: AZITHROMYCIN 500 MG TAB PO SCH (07:57)
[2020-07-12] MEDS: dexAMETHasone 2 MG TAB PO SCH (07:57)
[2020-07-12] MEDS: CHOLECALCIFEROL 1,000 UNIT TAB PO SCH (07:57)
--- NOTE | 2020-07-12 08:36 | XR ---
EXAMINATION TYPE: XR chest 1V portable DATE OF EXAM: 07/12/2020 HISTORY: Shortness of breath. COMPARISON: 07/10/2020 TECHNIQUE: Single view of the chest is submitted. FINDINGS: Demonstrated are scattered senescent parenchymal change. There is no evidence for focal infiltrate. Linear areas of atelectasis left mid lung zone. The heart is stable. Hilar and mediastinal structures are within normal limits. Degenerative changes are seen of the dorsal spine. IMPRESSION: 1. Chronic changes without evidence for acute pulmonary disease.
[2020-07-12 11:16] LABS: C Reactive Protein 0.7 mg/dL (0.0-0.8)
[2020-07-12] MEDS: SYMBICORT 160-4.5 MCG INHALER INHALATION SCH ×2 (11:20→21:29)
[2020-07-12] MEDS: ALBUTEROL HFA INHALER INHALATION SCH ×4 (11:20→21:29)
[2020-07-12] MEDS: MORPHINE SULFATE ER 15 MG TABLET PO PRN ×2 (12:51→21:12)
--- NOTE | 2020-07-12 12:52 | P.PN ---
Subjective Progress Note Date: 07/12/20 HISTORY OF PRESENT ILLNESS 63-year-old female one of my office patient with multiple medical problem known to have history of advanced COPD history of hypothyroidism history of from hypertension chronic lower back pain and chronic pain syndrome was seen Dr. Chapman, pulmonary as an outpatient patient called the office with concern about exposure to Covid 19 and one of the restaurant and she was tested as an outpatient positive on Saturday. Patient's called last night with concern that she is having severe hypoxia shortness of breath with low pulse ox with increased cough and worsening GI symptoms. Patient was seen in the emergency department with mild hypoxia and mild symptoms, chest x-ray showed left-sided mild subsegmental atelectasis or scarring with normal heart there is no sign of change from an old exam still shows questionable of left lower lobe pneumonia. Patient marker for to Covid came back stable at this time. Patient was started on Decadron along with vitamins for the Covid coverage and started on Lovenox subcutaneous as an anticoagulation patient will be seen pulmonary we'll continue updraft treatment along with inhaler continue oxygen supplement and support. 07/12: Patient states that she is feeling better today. Breathing status seems to be stable. She has been seen by infectious disease with plan to continue current medications isolation. Repeat chest x-ray reveals chronic changes without evidence of acute pulmonary disease. Pulmonary consult in place. She has been afebrile, heart rate 68, blood pressure 128/73, pulse ox 94% on room air. D-dimer 1. LDH 247, C-reactive protein 0.7, pro calcitonin 0.02. Patient was requesting to go home but she is agreeable to stay for 1 more night. Plan is to monitor patient overnight and if she remains stable, discharge home tomorrow REVIEW OF SYSTEMS CONSTITUTIONAL: Well-developed no acute respiratory distress. Denies fever. EYES: No icterus sclerae, no conjunctivitis. EARS, NOSE, MOUTH, THROAT, and FACE: No sore throat, lymphadenopathy, carotid br uits or deformity. RESPIRATORY: Positive shortness of breath cough wheezes with recent Covid positive from this week. CARDIOVASCULAR: No CP, Palpitation, PND, Orthopnea, or angina. GASTROINTESTINAL: No Abd pain, Nausea or vomiting, no Diarrhea or constipation, No GI Bleed, no distention or masses. GENITOURINARY: Negative for Hematuria or UTI, no kidney stones. INTEGUMENT/BREAST: Negative for any muscular injury with mild osteoarthritis.. Generalized arthralgia and myalgia with severe back pain. HEMATOLOGIC/LYMPHATIC: Negative for bleed or purpura. MUSCULOSKELTAL: Negative for Myalgia or arthralgia. NEURLOGICAL: No LOC, Sz or syncope, blurred vision dizziness or abnormality.. BEHAVIORAL/PSYCH: Negative. ENDOCRINE: Negative. PHYSICAL EXAMINATION General Appearance: Alert, cooperative, no distress, appears stated age. Neck HEENT: Supple, no lymphadenopathy, no thyroid enlargement, no carotid bruits. Lungs: Clear to auscultation without crackles or wheezes no rhonchi, no deformity. Chest Wall: Chest wall normal expansion with deep inspiration no tenderness and no deformity was found on exam, no costochondral pain or discomfort. Heart: Regular rate and rhythm, S1, S2 normal, no murmur, rub or gallop. Back: Symmetric, no curvature, ROM normal, no CVA tenderness. Abdomen: Soft, non-tender, bowel sounds active all four quadrants, no masses, no organomegaly. Extremities: Extremities normal, atraumatic, no cyanosis or edema. Pulses: 2+ and symmetric. Skin: Skin color, texture, tugor normal, no rashes or lesions. Neurologic: Alert oriented x3 cranial nerves II through XII intact, no motor deficit, no abnormal balance or gait. ASSESSMENT AND PLAN 1 severe dyspnea and shortness of breath: Patient be hospitalized continue current management with antibiotics, Decadron, oxygen, pulmonary consultation. 2 left-sided pneumonia: Could be Covid addition to community-acquired pneumonia with patient history of COPD patient will be on azithromycin and Rocephin and whether she needs to be started on a Covid antiviral coverage will be left up to pulmonary. 3 Covid 19: Test was positive on Saturday and continue current medica tions. ID consult appreciated. Pulmonary consult in place. 4 advance COPD: Patient has been on prednisone along with Symbicort and DuoNeb continue medication. 5 chronic pain management: Has been on morphine sulfate 15 mg 3 times a day along with Zanaflex 4 mg every 8 hours. 6 hypothyroidism: Continue levothyroxine 150 g daily. 7 vitamin D deficiency: Remain on vitamin D 50,000 units every 2 weeks. 8 hyperglycemia: Accu-Chek with sliding scale coverage and be done. 9 GI prophylaxis: Patient be on Pepcid 20 mg daily. 10 DVT prophylaxis: Patient will be on Lovenox for milligrams subcutaneous daily. CODE STATUS: Full code. DISCHARGE PLAN Home on Saturday. Impression and plan of care have been directed as dictated by the signing physician. Xiomara Stephenson nurse practitioner acting as scribe for signing physician. Objective - Vital Signs Vital signs: Vital Signs Temp 97.7 F 07/12/20 07:00 Pulse 68 07/12/20 07:00 Resp 18 07/12/20 07:00 BP 128/73 07/12/20 07:00 Pulse Ox 94 L 07/12/20 07:00 Intake & Output 07/11/20 07/12/20 07/12/20 18:59 06:59 18:59 Weight 81.647 kg Other: # Voids 1 - Labs CBC & Chem 7: 07/10/20 21:55 07/10/20 21:55 Labs: Abnormal Lab Results - Last 24 Hours (Table) 07/12/20 Range/Units 06:46 D-Dimer 1.00 H (<0.60) mg/L FEU Microbiology - Last 24 Hours (Table) 07/10/20 21:55 Blood Culture - Preliminary Blood No Growth after 24 hours
[2020-07-12] MEDS: MONTELUKAST 10 MG TAB PO SCH (21:09)
[2020-07-12] MEDS: diphenhydrAMINE 25 MG CAP PO SCH (21:09)
--- NOTE | 2020-07-13 03:49 | PN ---
PROGRESS NOTE DATE OF SERVICE: 07/12/2020 REASON FOR FOLLOWUP: Acute COVID-19 pneumonia. INTERVAL HISTORY: The patient is currently afebrile. The patient is feeling much better today. She is breathing comfortably. The patient denies having any chest pain. Minimal cough. No nausea, no vomiting. No abdominal pain or diarrhea. PHYSICAL EXAMINATION: Blood pressure 165/84, pulse of 75, temperature 98.1. She is 94% on room air. General description is a middle-aged female up in the bed, in no distress. RESPIRATORY SYSTEM: Unlabored breathing, decreased intensity of breath sounds. No wheeze. HEART: S1, S2. Regular rate and rhythm. ABDOMEN: Soft, no tenderness. LABS: D-dimer is 1.0. LDH is 247. CRP normalized to 0.7. Procalcitonin is normal. DIAGNOSTIC IMPRESSION AND PLAN: Patient with acute COVID-19 pneumonia in this patient seemed to have shown overall clinical improvement. Chest x-ray repeated this morning with no acute pulmonary disease. CRP has normalized. The patient is currently covered with Zithromax, Lovenox, dexamethasone to continue and monitor clinical course closely. MMODL / IJN: [id number] / KEITH
[2020-07-13] MEDS: LEVOTHYROXINE 75 MCG TAB PO SCH (06:07)
[2020-07-13] MEDS: AZITHROMYCIN 500 MG TAB PO SCH (08:14)
[2020-07-13] MEDS: dexAMETHasone 2 MG TAB PO SCH (08:14)
[2020-07-13] MEDS: ASCORBIC ACID 500 MG TAB PO SCH (08:14)
[2020-07-13] MEDS: CHOLECALCIFEROL 1,000 UNIT TAB PO SCH (08:14)
[2020-07-13] MEDS: ENOXAPARIN 40 MG/0.4 ML SYRINGE SQ SCH (08:14)
[2020-07-13] MEDS: ZINC SULFATE 220 MG CAP PO SCH (08:15)
[2020-07-13] MEDS: MORPHINE SULFATE ER 15 MG TABLET PO PRN (08:19)
[2020-07-13 08:42] VITALS: BP 148/75; PULSE 61; RESP 18; TEMP 97.8
--- NOTE | 2020-07-13 09:14 | P.DS ---
Providers Date of admission: 07/10/20 22:47 Expected date of discharge: 07/13/20 Attending physician: Franco Lagunas Consults: 07/10/20 22:46 Consult Physician Routine Consulting Provider: Katelynn Cedillo Consult Reason/Comments: covid Do you want consulting provider notified?: Yes Primary care physician: [facility] Course: HISTORY OF PRESENT ILLNESS 63-year-old female one of my office patient with multiple medical problem known to have history of advanced COPD history of hypothyroidism history of from hypertension chronic lower back pain and chronic pain syndrome was seen Dr. Chapman, pulmonary as an outpatient patient called the office with concern about exposure to Covid 19 and one of the restaurant and she was tested as an outpatient positive on Saturday. Patient's called last night with concern that she is having severe hypoxia shortness of breath with low pulse ox with increased cough and worsening GI symptoms. Patient was seen in the emergency department with mild hypoxia and mild symptoms, chest x-ray showed left-sided mild subsegmental atelectasis or scarring with normal heart there is no sign of change from an old exam still shows questionable of left lower lobe pneumonia. Patient marker for to Covid came back stable at this time. Patient was started on Decadron along with vitamins for the Covid coverage and started on Lovenox subcutaneous as an anticoagulation patient will be seen pulmonary we'll continue updraft treatment along with inhaler continue oxygen supplement and support. 07/12: Patient states that she is feeling better today. Breathing status seems to be stable. She has been seen by infectious disease with plan to continue current medications isolation. Repeat chest x-ray reveals chronic changes without evidence of acute pulmonary disease. Pulmonary consult in place. She has been afebrile, heart rate 68, blood pressure 128/73, pulse ox 94% on room air. D-dimer 1. LDH 247, C-reactive protein 0.7, pro calcitonin 0.02. Patient was requesting to go home but she is agreeable to stay for 1 more night. Plan is to monitor patient overnight and if she remains stable, discharge home tomorrow. 07/13: Patient is feeling very well today and is anxious to go home. She has been afebrile, heart rate 61, blood pressure 148/75, pulse ox 92-94% on room air. Patient will be discharged home today in stable condition. ASSESSMENT AND PLAN 1 severe dyspnea and shortness of breath secondary to Covid 19 pneumonia 2 left-sided pneumonia 3 Covid 19 4 advance COPD 5 chronic pain management 6 hypothyroidism 7 vitamin D deficiency 8 hyperglycemia DISCHARGE PLAN Home Impression and plan of care have been directed as dictated by the signing physician. Xiomara Stephenson nurse practitioner acting as scribe for signing physician. Patient Condition at Discharge: Good Plan - Discharge Summary Discharge Rx Participant: No New Discharge Prescriptions: New dexAMETHasone [Hexadrol] 6 mg PO DAILY #7 tablet Zinc Sulfate [Orazinc] 220 mg PO DAILY cap Ascorbic Acid [Vitamin C] 500 mg PO DAILY tab Azithromycin [Zithromax] 500 mg PO DAILY #4 tab Continue Albuterol Nebulized [Ventolin Nebulized] 2.5 mg INHALATION RT-QID PRN PRN Reason: Shortness Of Breath Montelukast [Singulair] 10 mg PO HS Ergocalciferol (Vitamin D2) [Vitamin D2] 50,000 unit PO FR Levothyroxine Sodium [Synthroid] 150 mcg PO QAM Valerian Root 100 - 400 mg PO HS PRN PRN Reason: sleep Albuterol Sulfate [Ventolin HFA] 2 puff INHALATION RT-Q6H PRN PRN Reason: Shortness Of Breath Morphine Sulfate [Morphine Sulfate ER] 15 mg PO TID PRN PRN Reason: Pain tiZANidine HCL [Zanaflex] 4 mg PO Q8HR PRN PRN Reason: Muscle Pain Fluticasone/Salmeterol [Advair 500-50 Diskus] 1 puff INHALATION RT-BID Budesonide-Formot 160-4.5 Mcg [Symbicort 160-4.5 Mcg Inhaler] 2 puff INHALATION RT-BID PRN PRN Reason: Shortness Of Breath diphenhydrAMINE [Benadryl] 25 mg PO HS predniSONE 2.5 mg PO DAILY #0 Discharge Medication List Albuterol Nebulized [Ventolin Nebulized] 2.5 mg INHALATION RT-QID PRN 12/22/14 [History] Montelukast [Singulair] 10 mg PO HS 12/16/16 [History] Ergocalciferol (Vitamin D2) [Vitamin D2] 50,000 unit PO FR 10/25/17 [History] Levothyroxine Sodium [Synthroid] 150 mcg PO QAM 09/08/19 [History] Valerian Root 100 - 400 mg PO HS PRN 09/08/19 [History] Albuterol Sulfate [Ventolin HFA] 2 puff INHALATION RT-Q6H PRN 07/10/20 [History] Budesonide-Formot 160-4.5 Mcg [Symbicort 160-4.5 Mcg Inhaler] 2 puff INHALATION RT-BID PRN 07/10/20 [History] Fluticasone/Salmeterol [Advair 500-50 Diskus] 1 puff INHALATION RT-BID 07/10/20 [History] Morphine Sulfate [Morphine Sulfate ER] 15 mg PO TID PRN 07/10/20 [History] diphenhydrAMINE [Benadryl] 25 mg PO HS 07/10/20 [History] tiZANidine HCL [Zanaflex] 4 mg PO Q8HR PRN 07/10/20 [History] Ascorbic Acid [Vitamin C] 500 mg PO DAILY tab 07/13/20 [Rx] Azithromycin [Zithromax] 500 mg PO DAILY #4 tab 07/13/20 [Rx] Zinc Sulfate [Orazinc] 220 mg PO DAILY cap 07/13/20 [Rx] dexAMETHasone [Hexadrol] 6 mg PO DAILY #7 tablet 07/13/20 [Rx] predniSONE 2.5 mg PO DAILY #0 07/13/20 [Rx] Follow up Appointment(s)/Referral(s): Franco Lagunas MD [Primary Care Provider] - 07/19/20 9:45 am (TELEPHONE APPOINTMENT. Office will send a link Please call office to finish setting up) Patient Instructions/Handouts: Community Acquired Pneumonia (DC) Discharge Disposition: HOME SELF-CARE
--- NOTE | 2020-07-13 12:06 | P.PN ---
Progress Note - Text Progress Note Date: 07/13/20 REASON FOR FOLLOWUP: Acute COVID-19 pneumonia. INTERVAL HISTORY: The patient remains to be afebrile. The patient is feeling better today. The patient is breathing comfortably. The patient denies having any chest pain. Minimal cough. No nausea, no vomiting. No abdominal pain or diarrhea. PHYSICAL EXAMINATION: Blood pressure 148/75, pulse of 61, temperature 98.1. She is 92% on room air. General description is a middle-aged female up in the bed, in no distress. RESPIRATORY SYSTEM: Unlabored breathing . HEART: S1, S2. Regular rate and rhythm. ABDOMEN: Soft, no tenderness. LABS: Reviewed DIAGNOSTIC IMPRESSION AND PLAN: Patient with acute COVID-19 pneumonia in this patient seemed to have shown overall clinical improvement. Chest x-ray repeated yesterday with no acute pulmonary disease. CRP has normalized. The patient will be able to go home on a short course of oral Decadron and Zithromax.
== END 2020-07-13 10:40 | disposition home or self-care (01) | DRG 177 ==
LOC: EC 20:40 → 4SSUR 22:47
PROVIDERS: ADMIT Internal Medicine Geriatric Medicine; ATTEND Internal Medicine Geriatric Medicine
DX: U07.1 COVID-19 (principal); J12.89 Other viral pneumonia; J45.901 Unspecified asthma with (acute) exacerbation; K51.90 Ulcerative colitis, unspecified, without complications; J44.0 Chronic obstructive pulmonary disease with (acute) lower respiratory infection; M13.0 Polyarthritis, unspecified; M35.3 Polymyalgia rheumatica; R09.02 Hypoxemia; E03.9 Hypothyroidism, unspecified; E55.9 Vitamin D deficiency, unspecified; G89.4 Chronic pain syndrome; I10 Essential (primary) hypertension; Z79.51 Long term (current) use of inhaled steroids; Z79.890 Hormone replacement therapy; Z79.899 Other long term (current) drug therapy; Z80.49 Family history of malignant neoplasm of other genital organs; Z80.8 Family history of malignant neoplasm of other organs or systems; Z82.5 Family history of asthma and other chronic lower respiratory diseases; Z87.442 Personal history of urinary calculi; Z87.891 Personal history of nicotine dependence; Z90.710 Acquired absence of both cervix and uterus; Z96.651 Presence of right artificial knee joint; K59.00 Constipation, unspecified; I83.91 Asymptomatic varicose veins of right lower extremity; M54.5 Low back pain; Z90.89 Acquired absence of other organs
CPT/HCPCS: 36415; 71045; 80053; 82728; 83605; 83615; 83735; 84145; 85025; 85379; 85610; 85730; 86140; 87040; 93005; 94640; 96372; 96374; 99291

== ENCOUNTER → 2021-07-06 | Outpatient (CLI) | payer BC, MEDICARE | END | disposition home or self-care (01) | LOC: LABWHC1 11:54 | PROVIDERS: ATTEND Anesthesiology Pain Medicine | DX: Z20.822 Contact with and (suspected) exposure to COVID-19 (principal) | CPT/HCPCS: U0003; C9803; U0005 ==

== ENCOUNTER 2021-09-02 11:31 | Emergency (ER) | payer BC, MEDICARE ==
[2021-09-02 12:33] VITALS: RESP 18
[2021-09-02 13:01] LABS: Basophils % (A) 0 %; Eosinophils # (A) 0.5 k/uL (0-0.7); Eosinophils % (A) 4 %; HCT 41.7 % (34.0-46.0); Lymphocytes # (A) 1.7 k/uL (1.0-4.8); Lymphocytes % (A) 13 %; MCHC 33.5 g/dL (31.0-37.0); MCV 98.4 fL (80.0-100.0); Mean Platelet Volume 7.7; Monocytes # (A) 0.8 k/uL (0-1.0); Monocytes % (A) 6 %; Neutrophils # (A) 10.1 k/uL (1.3-7.7); Neutrophils % (A) 77 %; Platelet Count 360 k/uL (150-450); RBC 4.24 m/uL (3.80-5.40); RDW 12.9 % (11.5-15.5); WBC 13.2 k/uL (3.8-10.6)
[2021-09-02 13:10] LABS: ALT 27 U/L (4-34); AST 29 U/L (14-36); African American GFR (CKD) >90 (>60 ml/min/1.73 sqM); Albumin 4.2 g/dL (3.5-5.0); Alkaline Phosphatase 114 U/L (38-126); Amylase 87 U/L (30-110); Anion Gap 6 mmol/L; Blood Urea Nitrogen 17 mg/dL (7-17); Calcium 9.2 mg/dL (8.4-10.2); Carbon Dioxide 28 mmol/L (22-30); Chloride 104 mmol/L (98-107); Glucose 100 mg/dL (74-99); Lipase 218 U/L (23-300); Non-African American GFR(CKD) >90 (>60 ml/min/1.73 sqM); Potassium 4.5 mmol/L (3.5-5.1); Sodium 138 mmol/L (137-145); Total Bilirubin 0.6 mg/dL (0.2-1.3); Total Protein 7.6 g/dL (6.3-8.2)
[2021-09-02 13:13] LABS: Appearance,Urine Clear (Clear); Bilirubin,Urine Negative (Negative); Blood,Urine Negative (Negative); Color,Urine Light Yellow; Glucose,Urine (UA) Negative (Negative); Ketones,Urine Negative (Negative); Leukocyte Esterase,Urine Negative (Negative); Nitrite,Urine Negative (Negative); Protein,Urine Negative (Negative); Urobilinogen,Urine <2.0 mg/dL (<2.0)
--- NOTE | 2021-09-02 13:57 | CT ---
EXAMINATION TYPE: CT abdomen pelvis w con CT DLP: 1230 mGycm, Automated exposure control for dose reduction was used. DATE OF EXAM: 09/02/2021 1:40 PM COMPARISON: None CLINICAL INDICATION:Female, 66 years old with history of abdominal pain;, low back pain TECHNIQUE: Standard CT of the abdomen and pelvis following the administration of 100 cc of Isovue 3 00 IV contrast material. Coronal and sagittal reformats were performed. FINDINGS: LOWER CHEST: Unremarkable ABDOMEN LIVER: Unremarkable GALLBLADDER AND BILE DUCTS: Unremarkable. PANCREAS: Unremarkable. SPLEEN: Unremarkable. ADRENAL GLANDS: Unremarkable. KIDNEYS AND URETERS: No evidence of hydronephrosis or renal calculus. The ureters are unremarkable. PELVIS BLADDER: Unremarkable REPRODUCTIVE: Unremarkable. ABDOMEN & PELVIS STOMACH AND BOWEL: . Scattered diverticula are noted throughout the colon. Few scattered fat strandin g changes are seen around the sigmoid colon. No evidence of bowel obstruction. PERITONEUM: No evidence of pneumoperitoneum or free fluid. VASCULATURE: Mild atherosclerotic calcifications are present throughout the abdominal aorta and its b ranches. Fusiform ectasia of the distal abdominal aorta measuring up to 2.9 cm and is below the level of the renal arteries measuring 2.72 cm. MUSCULOSKELETAL: No acute osseous abnormalities, multilevel degenerative disc disease changes with di sc cage at L5-S1. Mild disc bulging at L4-L5. LYMPH NODES: No gross evidence for lymphadenopathy. SOFT TISSUE/ABDOMINAL WALL: Unremarkable IMPRESSION: 1. Colonic diverticulosis subtle fat stranding changes in the sigmoid: which may represent uncomplica renea diverticulitis. 2. Distal aorta fusiform dilation measuring up to 2.9 cm. 3. L4-L5 disc bulging with at least mild spinal canal stenosis. 4. Surgical changes to the L5-S1 disc space.
--- NOTE | 2021-09-02 14:06 | ED ---
General Adult HPI - General Chief complaint: Back Pain/Injury Stated complaint: low back back Time Seen by Provider: 09/02/21 12:29 Source: patient, family, RN notes reviewed Mode of arrival: wheelchair Limitations: physical limitation - History of Present Illness Initial comments: Patient is a 66-year-old female that presents to the emergency department complaining of right back and abdominal pain. She notes that whenever she has a bowel movement she gets a sharp stabbing pain. Patient notes when she stands on her right leg pain in her back increases. Patient notes she does have a history of back pain and this feels different. Patient is acutely agitated and frustrated. She denied any other issues or complaints. Patient denied any chest pain shortness of breath headache nausea vomiting diarrhea constipation fever fatigue chills. - Related Data Home Medications Medication Instructions Recorded Confirmed Albuterol Nebulized [Ventolin 2.5 mg INHALATION RT-QID PRN 12/22/14 07/10/20 Nebulized] Montelukast [Singulair] 10 mg PO HS 12/16/16 07/10/20 Ergocalciferol (Vitamin D2) 50,000 unit PO FR 10/25/17 07/10/20 [Vitamin D2] Levothyroxine Sodium [Synthroid] 150 mcg PO QAM 09/08/19 07/10/20 Valerian Root 100 - 400 mg PO HS PRN 09/08/19 07/10/20 Albuterol Sulfate [Ventolin HFA] 2 puff INHALATION RT-Q6H PRN 07/10/20 07/10/20 Budesonide-Formot 160-4.5 Mcg 2 puff INHALATION RT-BID PRN 07/10/20 07/10/20 [Symbicort 160-4.5 Mcg Inhaler] Fluticasone/Salmeterol [Advair 1 puff INHALATION RT-BID 07/10/20 07/10/20 500-50 Diskus] Morphine Sulfate [Morphine Sulfate 15 mg PO TID PRN 07/10/20 07/10/20 ER] diphenhydrAMINE [Benadryl] 25 mg PO HS 07/10/20 07/10/20 tiZANidine HCL [Zanaflex] 4 mg PO Q8HR PRN 07/10/20 07/10/20 Previous Rx's Medication Instructions Recorded Ascorbic Acid [Vitamin C] 500 mg PO DAILY tab 07/13/20 Azithromycin [Zithromax] 500 mg PO DAILY #4 tab 07/13/20 Zinc Sulfate [Orazinc] 220 mg PO DAILY cap 07/13/20 dexAMETHasone ORAL [Hexadrol] 6 mg PO DAILY #7 tablet 07/13/20 predniSONE 2.5 mg PO DAILY #0 07/13/20 Amoxicillin/Potassium Clav 1 tab PO Q12HR #20 tab 09/02/21 [Augmentin 875-125 Tablet] Fluconazole [Diflucan] 150 mg PO ONCE #2 tab 09/02/21 Allergies Allergy/AdvReac Type Severity Reaction Status Date / Time vitamin E (d-alpha Allergy Rash/Hives Verified 09/02/21 12:33 tocopherol) Review of Systems ROS Statement: Those systems with pertinent positive or pertinent negative responses have been documented in the HPI. ROS Other: All systems not noted in ROS Statement are negative. Past Medical History Past Medical History: Asthma, Osteoarthritis (OA), Thyroid Disorder Additional Past Medical History / Comment(s): Varicose veins, hx migraines 20 yrs ago, hx ulcerative colitis, occ uses a cane. constipation, told kidney stones in past, PMR(polymyalgia rheumatica)-left hand and index finger swollen, rectal bleeding for past couple months-(2-3 times) History of Any Multi-Drug Resistant Organisms: None Reported Past Surgical History: Back Surgery, Section, Hysterectomy, Joint Replacement, Orthopedic Surgery, Tonsillectomy Additional Past Surgical History / Comment(s): lew carpal tunnel, neck surgery, 4 back surgeries/fusion-CAGE ON BACK, ARTHROSCOPY RIGHT KNEE, PAIN CLINIC PROCEDURES , TOTAL RIGHT KNEE., arthroscopic rt shoulder, Past Anesthesia/Blood Transfusion Reactions: No Reported Reaction Past Psychological History: No Psychological Hx Reported Smoking Status: Former smoker Past Alcohol Use History: Rare Past Drug Use History: Marijuana - Past Family History Brother(s) Family Medical History: Cancer Additional Family Medical History / Comment(s): Melanoma Sister(s) Family Medical History: Cancer Additional Family Medical History / Comment(s): Cervical Cancer Mother Family Medical History: Cancer Additional Family Medical History / Comment(s): MELANOMA Father Family Medical History: COPD General Exam Limitations: physical limitation General appearance: alert, in no apparent distress, obese Head exam: Present: atraumatic, normocephalic, normal inspection Eye exam: Present: normal appearance, PERRL, EOMI. Absent: scleral icterus, conjunctival injection, periorbital swelling ENT exam: Present: normal exam, mucous membranes moist Neck exam: Present: normal inspection Respiratory exam: Present: normal lung sounds bilaterally. Absent: respiratory distress, wheezes, rales, rhonchi, stridor Cardiovascular Exam: Present: regular rate, normal rhythm, normal heart sounds. Absent: systolic murmur, diastolic murmur, rubs, gallop, clicks GI/Abdominal exam: Present: soft, tenderness (Mildly in the right lower quadrant.), normal bowel sounds. Absent: distended, guarding, rebound, rigid Extremities exam: Present: normal inspection, full ROM, normal capillary refill. Absent: tenderness, pedal edema, joint swelling, calf tenderness Back exam: Present: normal inspection, tenderness (Right SI) Neurological exam: Present: alert, oriented X3 Psychiatric exam: Present: normal affect, normal mood Skin exam: Present: warm, dry, intact, normal color. Absent: rash Course Vital Signs 09/02/21 12:28 Temperature 98.1 F Pulse Rate 86 Respiratory 18 Rate Blood Pressure 163/61 O2 Sat by Pulse 96 Oximetry Medical Decision Making - Medical Decision Making 66-year-old female complaining of right low back and right lower abdominal pain. Labs, 1 L normal saline, CT of the abdomen and pelvis ordered. Patient declined pain medicine at this time. Labs: White blood cells 13.2, CMP unremarkable, urinalysis unremarkable. Patient was informed of results. Computed tomography scan shows diverticulosis with mild fat stranding possible early uncomplicated diverticulitis. Case discussed with Dr. Montero. Patient will discharge home with antibiotics. - Lab Data Result diagrams: 09/02/21 12:53 09/02/21 12:53 Lab Results 09/02/21 09/02/21 09/02/21 Range/Units 12:53 12:53 13:05 WBC 13.2 H (3.8-10.6) k/uL RBC 4.24 (3.80-5.40) m/uL Hgb 14.0 (11.4-16.0) gm/dL Hct 41.7 (34.0-46.0) % MCV 98.4 (80.0-100.0) fL MCH 33.0 (25.0-35.0) pg MCHC 33.5 (31.0-37.0) g/dL RDW 12.9 (11.5-15.5) % Plt Count 360 (150-450) k/uL MPV 7.7 Neutrophils % 77 % Lymphocytes % 13 % Monocytes % 6 % Eosinophils % 4 % Basophils % 0 % Neutrophils # 10.1 H (1.3-7.7) k/uL Lymphocytes # 1.7 (1.0-4.8) k/uL Monocytes # 0.8 (0-1.0) k/uL Eosinophils # 0.5 (0-0.7) k/uL Basophils # 0.0 (0-0.2) k/uL Sodium 138 (137-145) mmol/L Potassium 4.5 (3.5-5.1) mmol/L Chloride 104 (98-107) mmol/L Carbon Dioxide 28 (22-30) mmol/L Anion Gap 6 mmol/L BUN 17 (7-17) mg/dL Creatinine 0.56 (0.52-1.04) mg/dL Est GFR (CKD-EPI)AfAm >90 (>60 ml/min/1.73 sqM) Est GFR (CKD-EPI)NonAf >90 (>60 ml/min/1.73 sqM) Glucose 100 H (74-99) mg/dL Calcium 9.2 (8.4-10.2) mg/dL Total Bilirubin 0.6 (0.2-1.3) mg/dL AST 29 (14-36) U/L ALT 27 (4-34) U/L Alkaline Phosphatase 114 (38-126) U/L Total Protein 7.6 (6.3-8.2) g/dL Albumin 4.2 (3.5-5.0) g/dL Amylase 87 (30-110) U/L Lipase 218 (23-300) U/L Urine Color Light Yellow Urine Appearance Clear (Clear) Urine pH 7.0 (5.0-8.0) Ur Specific Ceres 1.010 (1.001-1.035) Urine Protein Negative (Negative) Urine Glucose (UA) Negative (Negative) Urine Ketones Negative (Negative) Urine Blood Negative (Negative) Urine Nitrite Negative (Negative) Urine Bilirubin Negative (Negative) Urine Urobilinogen <2.0 (<2.0) mg/dL Ur Leukocyte Esterase Negative (Negative) - Radiology Data Radiology results: report reviewed, image reviewed CT of the abdomen and pelvis: Colonic diverticulosis subtle fat stranding mendez ges in the sigmoid which may represent uncomplicated diverticulitis. Distal aorta fusiform dilation measuring up to 2.7 cm. L4-L5 disc bulging with at least mild spinal canal stenosis. Surgical changes to the L5-S1 disc space. Disposition Clinical Impression: Sciatica, Diverticulitis Disposition: HOME SELF-CARE Condition: Stable Instructions (If sedation given, give patient instructions): Diverticulitis (ED) Additional Instructions: Please return to the Emergency Department if symptoms worsen or any other concerns. Follow-up with primary care in 1-2 days. Take Tylenol Motrin as needed for aches pains or fevers. Take antibiotics as prescribed until complete. Follow-up with GI specialist as soon as possible. Prescriptions: Amoxicillin/Potassium Clav [Augmentin 875-125 Tablet] 1 tab PO Q12HR #20 tab Fluconazole [Diflucan] 150 mg PO ONCE #2 tab Is patient prescribed a controlled substance at d/c from ED?: No Referrals: Franco Lagunas MD [Primary Care Provider] - 1-2 days Time of Disposition: 14:47
[2021-09-02 15:18] VITALS: BP 156/89; PULSE 89; TEMP 97.5
== END 2021-09-02 15:16 | disposition home or self-care (01) ==
LOC: EC 11:31
DX: M54.30 Sciatica, unspecified side (principal); K57.92 Diverticulitis of intestine, part unspecified, without perforation or abscess without bleeding; J45.909 Unspecified asthma, uncomplicated; M19.90 Unspecified osteoarthritis, unspecified site; G40.909 Epilepsy, unspecified, not intractable, without status epilepticus; F12.90 Cannabis use, unspecified, uncomplicated; Z87.891 Personal history of nicotine dependence; Z72.89 Other problems related to lifestyle; Z79.51 Long term (current) use of inhaled steroids
CPT/HCPCS: 36415; 80053; 82150; 83690; 85025; 81003; 74177; 99284; Q9967

== ENCOUNTER → 2022-03-16 | Outpatient (CLI) | payer BC, MEDICARE ==
--- NOTE | 2022-03-16 14:24 | MR ---
EXAMINATION TYPE: MR lumbar spine wo/w con DATE OF EXAM: 03/16/2022 COMPARISON: CT abdomen and pelvis September 02, 2021 HISTORY: Lower left back pain into lower left extremities TECHNIQUE: Multiplanar, multisequence images of the lumbar spine is performed without and with IV contrast, util izing 8 mL intravenous Gadavist FINDINGS: Sagittal images of the lumbar spine show vertebral body heights heights to remain satisfact ory. Subtle grade 1 retrolisthesis L2 on L3 and L3 on L4 redemonstrated and stable. There is artifact from metallic disc material L5-S1 level redemonstrated. Multilevel disc desiccation is seen. Mild di sc space narrowing with vacuum disc phenomenon and heterogeneous Modic type II endplate changes anter iorly at L4-L5 level with mild to moderate anterior spurring. Mild to moderate multilevel anterior sp urring is present. The conus medullaris is normal in position and signal ending mid L1 level. No abno rmal postcontrast enhancement is seen. Axial images at T12-L1 level appear within normal limits. Axial images at L1-L2 level show mild lobulated posterior disc protrusion mildly effaces the anterior thecal sac. Patent bilateral neural foramina. Axial images at L2-L3 level show spondylolisthesis with mild broad disc bulge mildly effacing anterio r thecal sac. Patent bilateral neural foramina. Axial images at L3-L4 level show spondylolisthesis with mild facet arthropathy and ligamentum flavum hypertrophy. Mild effacement of the posterior lateral thecal sac. Asymmetric mild left-sided neural f oraminal narrowing. Axial images at L4-L5 level show moderate to advanced facet arthropathy and ligamentum flavum hypertr ophy effacing posterior lateral thecal sac. There is moderate broad-based posterior disc protrusion e ffacing the anterior thecal sac. There is moderate left and mild right-sided anterior inferior neural foraminal narrowing. Axial images at L5-S1 level show advanced facet arthropathy. Artifact from metallic disc material is seen. Spinal canal is preserved. Bilateral neural foramina are patent. There is redemonstration of ectatic/borderline aneurysmal infrarenal aorta measuring up to 3.0 x 2.9 cm axial image 11. IMPRESSION: Postsurgical change L5-S1 level redemonstrated. Multilevel degenerative changes lumbar sp ine seen as detailed above with attention to the L4-L5 level. Most prominent spinal canal effacement or stenosis is present at this level.
== END | disposition home or self-care (01) ==
LOC: RADMRIMAIN 11:32
PROVIDERS: ATTEND Anesthesiology Pain Medicine
DX: M51.26 Other intervertebral disc displacement, lumbar region (principal); M47.816 Spondylosis without myelopathy or radiculopathy, lumbar region; M48.061 Spinal stenosis, lumbar region without neurogenic claudication; M99.73 Connective tissue and disc stenosis of intervertebral foramina of lumbar region
CPT/HCPCS: 72158; A9585

== ENCOUNTER → 2022-04-02 | Outpatient (CLI) | payer BC, MEDICARE | END | disposition home or self-care (01) | LOC: LABWHC1 11:34 | PROVIDERS: ATTEND Anesthesiology Pain Medicine | DX: Z11.59 Encounter for screening for other viral diseases (principal); Z01.818 Encounter for other preprocedural examination; Z88.8 Allergy status to other drugs, medicaments and biological substances; Z87.891 Personal history of nicotine dependence | CPT/HCPCS: U0003; U0005 ==

== ENCOUNTER → 2022-07-10 | Outpatient (CLI) | payer BC, MEDICARE ==
--- NOTE | 2022-07-10 10:18 | XR ---
EXAMINATION TYPE: XR lumbar spine 2 or 3V DATE OF EXAM: 07/10/2022 COMPARISON: None HISTORY: Lumbar fusion TECHNIQUE: 3 view lumbar spine FINDINGS: There are 5 lumbar-type vertebral bodies. L1-L3 pedicles are intact. L4 and L5 pedicles hav e pedicle screws. Disc spacers present at L4-5 and L5-S1. Mild diffuse loss of disc height is to the lumbar spine. There is fusiform prominence of the distal abdominal aorta measuring 3.9 cm. Consider additional work up. IMPRESSION: 1. Postsurgical changes L4-5 disc space narrowing L4-5 and L5-S1. 2. Fusiform prominence of the distal abdominal aorta measuring 3.9 cm. Additional imaging can be perf ormed
== END | disposition home or self-care (01) ==
LOC: RADXRMAIN 09:24
PROVIDERS: ATTEND Physician Assistant
DX: M51.26 Other intervertebral disc displacement, lumbar region (principal); Z98.1 Arthrodesis status
CPT/HCPCS: 72100

== ENCOUNTER → 2022-09-06 | Outpatient (CLI) | payer BC, MEDICARE ==
--- NOTE | 2022-09-06 16:51 | XR ---
EXAMINATION TYPE: XR lumbosacral spine min 4V DATE OF EXAM: 09/06/2022 3:49 PM INDICATION: Patient age:Female; 67 years old; Reason for study: Z98.1 ARTHRODESIS STATUS; [facility]. COMPARISON: Lumbar spine radiograph 07/10/2022 TECHNIQUE: AP, lateral, flexion, extension, and cone-down L5-S1 lateral view of the lumbar spine was obtained. FINDINGS: There are 5 lumbar-type vertebral bodies. Post surgical changes with bilateral pedicular sc rews involving L4-L5. Hardware appears intact. Disc spaces are present L4-L5 and L5-S1. Mild mild ret rolisthesis of L3 on L4 and L2 on L3 and L1 on L2.. Mild multilevel degenerative disc disease with di sc space narrowing and endplate sclerosis with anterior osteophyte formation. Vascular sclerosis is r edemonstrated with fusiform prominence of the distal abdominal aorta measuring up to 3.4 cm. IMPRESSION: 1. No acute process. 2. Postsurgical changes of L4-L5 and L5-S1. Hardware appears intact. 3. Mild multilevel degenerative disease. 4. Redemonstration of fusiform prominence of the distal abdominal aorta measuring up to 3.4 cm consi stent with known aneurysm.
== END | disposition home or self-care (01) ==
LOC: RADXRMAIN 15:35
PROVIDERS: ATTEND Physician Assistant
DX: M47.816 Spondylosis without myelopathy or radiculopathy, lumbar region (principal); Z98.1 Arthrodesis status
CPT/HCPCS: 72110

== ENCOUNTER → 2022-12-03 | Outpatient (CLI) | payer BC, MEDICARE ==
--- NOTE | 2022-12-03 09:47 | US ---
EXAMINATION TYPE: US duplex aorta DATE OF EXAM: 12/03/2022 COMPARISON: MRI & CT CLINICAL HISTORY: I71.40 AAA. AAA visualized on prior scans TECHNIQUE: Multiple sonographic images of the abdominal aorta are obtained. FINDINGS: EXAM MEASUREMENTS: Abdominal Aorta: Proximal: 2.2 x 2.1 cm Mid: 2.7 x2.7 cm Distal: 3.2 x 2.8 cm Bifurcation: TRACEY: 1.0 x 1.1 cm KARINE: 1.0 x 1.2 cm IMPRESSION: 1. Mild fusiform prominence of the greatest AP diameter of 3.2 cm distal abdominal aorta.
== END | disposition home or self-care (01) ==
LOC: RADUSWWP 09:01
PROVIDERS: ATTEND Internal Medicine Geriatric Medicine
DX: I71.40 Abdominal aortic aneurysm, without rupture, unspecified (principal)
CPT/HCPCS: 93979

== ENCOUNTER → 2023-02-18 | Outpatient (CLI) | payer BC, MEDICARE ==
[2023-02-18 16:42] LABS: Appearance,Urine Clear (Clear); Bilirubin,Urine Negative (Negative); Blood,Urine Negative (Negative); Color,Urine Yellow (Yellow); Ketones,Urine Negative (Negative); Nitrite,Urine Negative (Negative); Specific Gravity,Urine 1.005 (1.001-1.030); Urobilinogen,Urine 0.2 E.U./DL
[2023-02-18 17:36] LABS: Basophils # (A) 0.03 X 10*3/uL (0.00-0.10); Basophils % (A) 0.3 %; Eosinophils # (A) 0.24 X 10*3/uL (0.04-0.35); Eosinophils % (A) 2.8 %; HCT 44.1 % (37.2-46.3); HGB 14.1 d/dL (12.0-15.0); Lymphocytes # (A) 1.67 X 10*3/uL (0.90-5.00); Lymphocytes % (A) 19.3 %; MCH 31.4 pg (27.0-32.0); MCV 98.2 FL (80.0-97.0); Mean Platelet Volume 10.9 FL (9.5-12.2); Monocytes # (A) 0.59 X 10*3/uL (0.20-1.00); Monocytes % (A) 6.8 %; NRBC Per 100 WBC 0 X 10*3/uL (0.00-0.01); Neutrophils # (A) 6.08 X 10*3/uL (1.80-7.70); Neutrophils % (A) 70.3 %; Platelet Count 261 X 10*3/uL (140-440); RBC 4.49 X 10*6/uL (4.10-5.20); RDW 13.7 % (11.5-14.5); WBC 8.65 X 10*3/uL (4.50-10.00)
[2023-02-19 21:56] LABS: ALT 34 U/L (8-44); AST 32 U/L (13-35); Albumin 4.5 d/dL (3.8-4.9); Albumin/Globulin Ratio 1.55 Ratio (1.60-3.17); Alkaline Phosphatase 110 U/L (41-126); BUN/Creat Ratio 21.86 Ratio (12.00-20.00); Blood Urea Nitrogen 15.3 mg/dL (9.0-27.0); Calcium 9.7 mg/dL (8.7-10.3); Carbon Dioxide 21.2 mmol/L (21.6-31.8); Chloride 105 mmol/L (96-109); Chol/HDL Ratio 4.04 Ratio; Globulin 2.9 d/dL (1.6-3.3); Glucose 98 mg/dL (70-110); LDL Cholesterol,Calculated 152.3 mg/dL (0.0-131.0); Potassium 4.5 mmol/L (3.5-5.5); Sodium 147 mmol/L (135-145); T4, Free (Free Thyroxine) 2.11 ng/dL (0.80-1.80); Total Bilirubin 0.3 mg/dL (0.3-1.2); Total Protein 7.4 d/dL (6.2-8.2)
== END | disposition home or self-care (01) ==
LOC: LABWHC1 09:58
PROVIDERS: ATTEND Internal Medicine Geriatric Medicine
DX: Z01.812 Encounter for preprocedural laboratory examination (principal); E03.9 Hypothyroidism, unspecified; E78.2 Mixed hyperlipidemia
CPT/HCPCS: 36415; 80053; 80061; 81003; 84439; 84443; 85025

== ENCOUNTER 2023-02-20 07:50 | Day surgery (SDC) | payer BC, MEDICARE ==
--- NOTE | 2023-02-19 12:54 | HP ---
HISTORY AND PHYSICAL DATE OF SURGERY: 02/20/2023. HISTORY OF PRESENT ILLNESS: Lida Diaz is a 67-year-old patient, who was seen with progressive left shoulder pain. We discussed options for treatment. She elected to proceed with left shoulder arthroscopy. Consent regarding procedure was obtained. PAST MEDICAL HISTORY: Hypothyroidism and asthma. PAST SURGICAL HISTORY: section, knee arthroscopy, lumbar spine fusion, and total knee arthroplasty. DAILY MEDICATIONS: 1. Singulair. 2. Synthroid. 3. Ventolin. ALLERGIES: None. SOCIAL HISTORY: She denies current tobacco use. PHYSICAL EVALUATION OF LEFT SHOULDER: Flexion is 90 degrees, abduction is 70 degrees, external rotation is 30 degrees with weakness and pain. Tenderness along the anterolateral acromion and rotator cuff insertion. Impingement is positive at 80 degrees. Cross-body adduction sign is positive. Drop-arm sign is positive. Distal neurovascular exam is intact. IMAGING STUDIES: Left shoulder radiographs revealed a type 2 acromion, evidence for acromioclavicular joint osteoarthritis, and cystic changes of the tuberosity. IMPRESSION: 1. Left shoulder impingement with rotator cuff tear. 2. Left shoulder acromioclavicular joint osteoarthritis. 3. Asthma. 4. Hypothyroidism. PLAN: Left shoulder arthroscopy with subacromial decompression, arthroscopic rotator cuff repair, Juany procedure and debridement. MMODL / IJN: [id number] /
[~2023-02-20 07:50] MED LIST changes: -DEXAMETHASONE SOD PHOSPHATE 10 MG/ML 1 ML VIAL IV ONE; +DEXAMETHASONE SOD PHOSPHATE 4 MG/ML 1 ML VIAL IV ONE; -MIDAZOLAM 2 MG/2 ML VIAL IV PRN; -ceFAZolin IN SWFI 2 GM/20 ML SYRINGE IVP ONE
[2023-02-20] MEDS ORDERED: LIDOCAINE 1% (10MG/ML) FOR IV START INTRADERMA ONE (08:41)
[2023-02-20 08:51] LABS: Glucose,Whole Blood 107 mg/dL (70-110)
[2023-02-20] MEDS ORDERED: MIDAZOLAM 2 MG/2 ML VIAL IVP ONE (09:16)
[2023-02-20] MEDS ORDERED: HYDROCORTISONE SUCCINATE 100 MG/2 ML VIAL IVP ONE (09:33)
[2023-02-20] MEDS ORDERED: fentaNYL (PF) 50 MCG/ML 2 ML AMP ONE (10:22)
[2023-02-20] MEDS ORDERED: DEXAMETHASONE SOD PHOSPHATE 4 MG/ML 1 ML VIAL ONE (10:22)
[2023-02-20] MEDS ORDERED: MIDAZOLAM 2 MG/2 ML VIAL ONE (10:22)
[2023-02-20] MEDS ORDERED: SUCCINYLCHOLINE CHLORIDE 200 MG/10 ML VIAL IV ONE (10:22)
[2023-02-20] MEDS ORDERED: PROPOFOL 10 MG/ML 20 ML VIAL IV ONE (10:22)
[2023-02-20] MEDS ORDERED: PHENYLEPHRINE-0.9% NACL SYG 1,000 MCG/10 ML SYRINGE ONE (10:22)
[2023-02-20] MEDS ORDERED: ROPIVACAINE 5 MG/ML 30 ML VIAL ONE (10:22)
[2023-02-20] MEDS ORDERED: LACTATED RINGERS 1,000 ML IV ONE (10:57)
--- NOTE | 2023-02-20 11:49 | P.OP ---
Date of Procedure: 02/20/23 Preoperative Diagnosis: Left shoulder impingement Postoperative Diagnosis: 1. Left shoulder rotator cuff tear 2. Left shoulder impingement 3. Left shoulder acromioclavicular joint osteoarthritis 4. Left shoulder partial long head biceps tendon tear 5. Left shoulder superficial superior labral tear Procedure(s) Performed: 1. Left shoulder arthroscopic rotator cuff repair 2. Left shoulder arthroscopic subacromial decompression 3. Left shoulder arthroscopic Juany procedure 4. Left shoulder arthroscopic biceps tenotomy Implants: 1Arthrex 5.5 swivel lock anchor Anesthesia: GETA, regional (Interscalene block) Surgeon: Ollie Amado Real [employer] Paralegal #1: Matthew Jefferson Estimated Blood Loss (ml): 10 Pathology: none sent Condition: stable Disposition: PACU Indications for Procedure: 67-year-old patient seen with progressive left shoulder pain. After having treatment options discussed, she elected to proceed with arthroscopy. Operative Findings: see description of procedure Description of Procedure: Patient underwent an interscalene block by department of anesthesia. The patient was then taken to the operative suite. The patient underwent a general anesthetic by the department of anesthesia. The patient was placed into a lateral position and secured. There was appropriate padding of the bony prominence. Left shoulder was then prepped and draped in normal sterile orthopedic fashion. We placed the extremity in 10 pounds of longitudinal traction. A posterior incision was now made for a posterior working portal site. The trocar and cannula were inserted into the glenohumeral joint. Arthroscopy was initiated. Spinal needle was now inserted anteriorly, to ascertain the anterior working portal site. An incision was now made in that area, a trocar was inserted followed by a probe. There was significant partial tearing long head biceps tendon. There was some superficial fraying of the superior labrum. There were grade 1/2 chondromalacia changes of the glenoid fossa anteriorly and grade 1, changes of the humeral head. I debrided out the superficial labral tear getting down to stable labral tissue. I performed an arthroscopic biceps tenotomy. The residual labrum was stable. Instruments were now removed from glenohumeral joint. Utilizing the posterior working portal site, the trocar and cannula were inserted into the subacromial space. Arthroscopy initiated. I made an incision 2 fingerbreadths lateral to the acromion. I introduced my trocar followed by my ArthroCare ablator. I now began ablating thick subacromial bursal tissue, which exposed the undersurface of the anterior acromion. There was diminished subacromial space. There was a very prominent anterior acromion. A motorized bur was introduced and a subacromial decompression was performed. I also excised some osteophytes off the inferior aspect of the distal clavicle. The AC joint was visualized and noted to be fairly arthritic. The motorized bur was introduced in the anterior portal site and a Juany procedure was performed without difficulty, decompressing the AC joint nicely. I turned my attention to the rotator cuff. There was significant partial tearing of the distal supraspinatus tendon. Upon probing the area noted a full-thickness perforation. I debrided the margins getting down to stable tendon tissue. I abraded the footprint with a motorized bur. With the assistance of Fabian BROOKS a past 3 everted mattress sutures through good bites of rotator cuff tendon. I punchd a hole in the footprint area for insertion of an anchor. All 6 limbs of suture were passed through the eyelet of a Arthrex 5.5 swivel lock anchor. I placed the eyelet into our pre-punch hole. I held in position while Fabian BROOKS tensioned all 6 limbs of suture and deployed the anchor with good fixation noted. All residual suture limbs were now clipped. We had good compression of the tendon along the entire footprint. Instruments now removed from the portal sites. All portal sites were approximated with nylon suture. Sterile dressings were applied followed by a shoulder sling. Matthew BROOKS assisted in this complex case. The patient was awakened, transferred to a bed, and taken to recovery in stable condition.
[2023-02-20 11:51] VITALS: TEMP 97
[2023-02-20] MEDS ORDERED: MEPERIDINE 50 MG/ML SYRINGE IVP ONE (12:08)
[2023-02-20 12:52] VITALS: RESP 16
[2023-02-20] MEDS ORDERED: ACETAMINOPHEN IV (For NPO) 1,000 MG/100 ML VIAL IVPB ONE (12:58)
[2023-02-20 13:12] VITALS: BP 127/78; PULSE 78
--- NOTE | 2023-02-20 20:38 | P.ANPRN ---
Procedure Note - Anesthesia - Nerve Block Performed Left Interscalene Single Time Out Performed: Yes Date of Procedure: 02/20/23 Procedure Start Time: :15 Procedure Stop Time: :20 Location of Patient: PreOp Indication: Acute Post-Operative Pain, Requested by Surgeon Sedation Type: Sedate with meaningful contact maintained Preparation: Sterile Prep Position: Supine Needle Types: Pajunk Needle Gauge: 21 Ultrasound used to visualize needle placement: Yes Ultrasound used to observe medication spread: Yes Blood Aspirated: No Pain Paresthesia on Injection Noted: No Resistance on Injection: Normal Image Stored and Saved: Yes Events: Uneventful and Well Tolerated (Ropivacaine 0.5% 20 mL plus dexamethasone 4 mg)
== END 2023-02-20 13:47 | disposition home or self-care (01) ==
LOC: OR 07:50
PROVIDERS: ATTEND Orthopaedic Surgery
DX: M75.102 Unspecified rotator cuff tear or rupture of left shoulder, not specified as traumatic (principal); M75.42 Impingement syndrome of left shoulder; M19.012 Primary osteoarthritis, left shoulder; G89.18 Other acute postprocedural pain
CPT/HCPCS: 64415; 29826; 29827; 29824; C1713 ×2; J2250; J0330; J1100; J1720; J2175; J0690; J2405; J3010; J2795; J0131; J2370; J2704

== ENCOUNTER 2023-10-09 05:34 | Day surgery (SDC) | payer BC, MEDICARE ==
[2023-10-03 12:26] VITALS: BMI 30.5
--- NOTE | 2023-10-08 13:01 | HP ---
HISTORY AND PHYSICAL DATE OF SCHEDULED SURGERY: 10/09/2023. HISTORY OF PRESENT ILLNESS: Lida Galarza is a 68-year-old patient seen with left shoulder hardware failure status post rotator cuff repair with probable retear. We discussed recommendation for arthroscopic rotator cuff repair. She was agreeable, consent was obtained. PAST MEDICAL HISTORY: Hypothyroidism, asthma. PAST SURGICAL HISTORY: Shoulder arthroscopy. DAILY MEDICATIONS: 1. Synthroid. 2. Singulair inhaler. 3. Ventolin inhaler. 4. Ibuprofen. ALLERGIES: None. SOCIAL HISTORY: She denies tobacco use. PHYSICAL EVALUATION OF THE LEFT SHOULDER: Her arthroscopic portal sites appear well healed. Flexion is 90 degrees, abduction is 90 degrees. External rotation is 50 degrees with notable weakness. She has tenderness along the anterior lateral acromion. IMAGING STUDIES: Radiographs of the left shoulder revealed the SwiveLock anchor protruding out of the bone in the subacromial space. IMPRESSION: 1. Left shoulder recurrent rotator cuff tendon tear. 2. History of left shoulder arthroscopic rotator cuff repair. PLAN: Arthroscopy left shoulder with rotator cuff repair. MMODL / IJN: [id number] /
[2023-10-09] MEDS ORDERED: DEXAMETHASONE SOD PHOSPHATE 4 MG/ML 1 ML VIAL IV ONE (06:06)
[2023-10-09] MEDS ORDERED: ONDANSETRON 4 MG/2 ML VIAL IVP ONE (06:06)
[2023-10-09] MEDS ORDERED: LIDOCAINE 1% (10MG/ML) FOR IV START INTRADERMA PRN (06:06)
[2023-10-09 06:51] LABS: Glucose,Whole Blood 92 mg/dL (70-110)
[2023-10-09] MEDS: LACTATED RINGERS 1,000 ML IV SCH (06:53)
[2023-10-09] MEDS ORDERED: MIDAZOLAM 2 MG/2 ML VIAL IV PRN (07:00)
[2023-10-09] MEDS: DEXAMETHASONE SOD PHOSPHATE 4 MG/ML 1 ML VIAL IVP ONE (07:01)
[2023-10-09] MEDS: ONDANSETRON 4 MG/2 ML VIAL IVP ONE (07:01)
[2023-10-09 07:05] VITALS: RESP 16
[2023-10-09] MEDS: MIDAZOLAM 2 MG/2 ML VIAL IVP ONE (07:11)
[2023-10-09] MEDS ORDERED: PHENYLEPHRINE 10 MG/ML VIAL ONE (07:25)
[2023-10-09] MEDS ORDERED: LIDOCAINE 1% INJ 10MG/ML (20 ML MDV) ONE (07:25)
[2023-10-09] MEDS ORDERED: ROPIVACAINE 5 MG/ML 30 ML VIAL ONE (07:25)
[2023-10-09] MEDS ORDERED: ROCURONIUM 10 MG/ML (5 ML VIAL) IV ONE (07:25)
[2023-10-09] MEDS ORDERED: NEOSTIGMINE 1 MG/ML 10 ML VIAL ONE (07:25)
[2023-10-09] MEDS ORDERED: DEXAMETHASONE SOD PHOSPHATE 4 MG/ML 1 ML VIAL ONE (07:25)
[2023-10-09] MEDS ORDERED: SUCCINYLCHOLINE CHLORIDE 200 MG/10 ML VIAL IV ONE (07:25)
[2023-10-09] MEDS ORDERED: PROPOFOL 10 MG/ML 20 ML VIAL IV ONE (07:25)
[2023-10-09] MEDS ORDERED: fentaNYL (PF) 50 MCG/ML 2 ML AMP ONE (07:25)
[2023-10-09] MEDS ORDERED: GLYCOPYRROLATE 0.2 MG/ML 2 ML VIAL ONE (07:25)
[2023-10-09] MEDS: LACTATED RINGERS 1,000 ML IV ONE (09:03)
--- NOTE | 2023-10-09 09:16 | P.OP ---
Date of Procedure: 10/09/23 Preoperative Diagnosis: Left shoulder recurrent rotator cuff tear Postoperative Diagnosis: 1. Left shoulder massive retracted recurrent rotator cuff tear 2. Left shoulder impingement Procedure(s) Performed: 1. Left shoulder arthroscopic debridement rotator cuff tear 2. Left shoulder arthroscopic subacromial decompression Anesthesia: GETA, regional (Interscalene block) Surgeon: Ollie Amado Type Inspector #1: Matthew Jefferson Estimated Blood Loss (ml): 8 Pathology: none sent Condition: stable Disposition: PACU Indications for Procedure: 68-year-old patient who was seen with limited range of motion and left shoulder persistent pain with previous history of arthroscopic rotator cuff repair. I discussed recurrent tear and recommended operative intervention. Patient was agreeable. Consent was obtained. Operative Findings: See description of procedure Description of Procedure: Patient underwent an interscalene block by department of anesthesia. The patient was then taken to the operative suite. The patient underwent a general anesthetic by the department of anesthesia. The patient was placed into a lateral position and secured. There was appropriate padding of the bony prominence. Left shoulder was then prepped and draped in normal sterile orthopedic fashion. We placed the extremity in 10 pounds of longitudinal traction. A posterior incision was now made for a posterior working portal site. The trocar and cannula were inserted into the glenohumeral joint. Arthroscopy was initiated. Spinal needle was now inserted anteriorly, to ascertain the anterior working portal site. An incision was now made in that area, a trocar was inserted followed by a probe. The biceps tendon was absent. There were grade II/III chondromalacia changes throughout the glenohumeral joint. The labrum was diminutive without tears. I did note a massive rotator cuff tear. At this point instruments were removed from the glenohumeral joint. Utilizing the posterior working portal site, the trocar and cannula were inserted into the subacromial space. Arthroscopy initiated. I made an incision 2 fingerbreadths lateral to the acromion. I introduced my trocar followed by my ArthroCare ablator. I now began ablating thick subacromial bursal tissue, which exposed the undersurface of the anterior acromion. There was a small residual subacromial spur. I introduced a motorized bur and decompress that area. I turned my attention to the rotator cuff. There was a massive retracted rotator cuff tear present. I debrided the torn edges getting down to stable tendon tissue. It appeared traumatic in nature. There was residual suture from her previous repair. I debrided the residual suture. I now tried to pull the tendon over the footprint and I was at least 2 cm shy of that. And I me ticulously began releasing the tendon all the way around. I still could not mobilize the tendon. I now continued my releasing again paying attention to the entire aspect of the tendon trying to mobilize it. I spent a good half hour mobilizing the tendon with the assistance of Fabian BROOKS utilizing traction sutures to try to pull the tendon over the footprint. I was unable to mobilize the tendon. At this point after spending a reasonable amount of time releasing the tendon is much as possible I came to the conclusion that this was not a repairable tear. Instruments now removed from the portal sites. All portal sites were approximated with nylon suture. Sterile dressings were applied followed by a shoulder sling. Matthew BROOKS assisted in this complex case. The patient was awakened, transferred to a bed, and taken to recovery in stable condition.
[2023-10-09] MEDS: HYDROmorphone 0.5 MG/0.5 ML SYRINGE IVP PRN (09:22)
[2023-10-09 09:36] LABS: Glucose,Whole Blood 104 mg/dL (70-110)
[2023-10-09 09:42] VITALS: TEMP 97.4
[2023-10-09 10:43] VITALS: BP 152/80; PULSE 75
--- NOTE | 2023-10-09 10:59 | P.ANPRN ---
Procedure Note - Anesthesia - Nerve Block Performed Left Interscalene Single Time Out Performed: Yes Date of Procedure: 10/09/23 Procedure Start Time: 07:10 Procedure Stop Time: 07:16 Location of Patient: PreOp Indication: Acute Post-Operative Pain, Requested by Surgeon Sedation Type: Sedate with meaningful contact maintained Preparation: Sterile Prep Position: Supine Needle Types: Pajunk Needle Gauge: 21 Ultrasound used to visualize needle placement: Yes Ultrasound used to observe medication spread: Yes Blood Aspirated: No Pain Paresthesia on Injection Noted: No Resistance on Injection: Normal Image Stored and Saved: Yes Events: Uneventful and Well Tolerated (Ropivacaine 0.5% 20 cc plus dexamethasone 4 mg)
== END 2023-10-09 11:01 | disposition home or self-care (01) ==
LOC: OR 05:34
PROVIDERS: ATTEND Orthopaedic Surgery
DX: M75.102 Unspecified rotator cuff tear or rupture of left shoulder, not specified as traumatic (principal); M75.42 Impingement syndrome of left shoulder; G89.18 Other acute postprocedural pain; I10 Essential (primary) hypertension; J44.9 Chronic obstructive pulmonary disease, unspecified; E03.9 Hypothyroidism, unspecified; M35.3 Polymyalgia rheumatica; Z79.51 Long term (current) use of inhaled steroids; Z79.890 Hormone replacement therapy; Z79.899 Other long term (current) drug therapy; Z96.651 Presence of right artificial knee joint; Z90.710 Acquired absence of both cervix and uterus; Z98.890 Other specified postprocedural states
CPT/HCPCS: 64415; 29822; 29826; J2250; J0330; J1100; J2710; J0690; J2405; J2001; J3010; J2795; J2704; J1170; J2371

== ENCOUNTER → 2023-12-26 | Outpatient (CLI) | payer BC, MEDICARE ==
--- NOTE | 2023-12-27 07:26 | XR ---
EXAMINATION TYPE: XR chest 2V DATE OF EXAM: 12/26/2023 COMPARISON: 07/12/2020 HISTORY: Shortness of breath TECHNIQUE: Frontal and lateral views of the chest are obtained. FINDINGS: Scattered senescent parenchymal changes noted. Hyperinflation compatible with COPD. No evidence for infiltrate. No evidence for atelectasis. Heart size is stable. Mediastinal structures are stable and grossly unremarkable. No evidence for hilar prominence. Degenerative changes dorsal spine. IMPRESSION: 1. No evidence for acute pulmonary disease.
--- NOTE | 2023-12-27 07:29 | XR ---
EXAMINATION TYPE: XR hand complete bilateral DATE OF EXAM: 12/26/2023 CLINICAL HISTORY: pain TECHNIQUE: Frontal, lateral and oblique images of the right hand are obtained. COMPARISON: None. FINDINGS: There is no acute fracture/dislocation evident. The joint spaces appear within normal limi ts. The overlying soft tissue appears unremarkable. IMPRESSION: There is no acute fracture or dislocation ICD 10 NO FRACTURE, INITIAL EVALUATION EXAMINATION TYPE: XR hand complete bilateral DATE OF EXAM: 12/26/2023 CLINICAL HISTORY: pain TECHNIQUE: Frontal, lateral and oblique images of the left hand are obtained. COMPARISON: None. FINDINGS: There is no acute fracture/dislocation evident. The joint spaces appear within normal limi ts. The overlying soft tissue appears unremarkable. IMPRESSION: There is no acute fracture or dislocation. ICD 10 NO FRACTURE, INITIAL EVALUATION
--- NOTE | 2023-12-27 11:46 | XR ---
EXAMINATION TYPE: XR Hip Bilateral Complete DATE OF EXAM: 12/26/2023 CLINICAL HISTORY: pain TECHNIQUE: AP and frogleg views of the bilateral hips and pelvis are obtained. COMPARISON: None. FINDINGS: There is no acute fracture/dislocation evident. The joint space appears within normal li mits. The overlying soft tissue appears unremarkable. IMPRESSION: 1. There is no acute fracture or dislocation. ICD 10 NO FRACTURE, INITIAL EVALUATION
== END | disposition home or self-care (01) ==
LOC: RADXRMAIN 16:02
PROVIDERS: ATTEND Internal Medicine Rheumatology
DX: J44.9 Chronic obstructive pulmonary disease, unspecified (principal); M19.019 Primary osteoarthritis, unspecified shoulder; M16.10 Unilateral primary osteoarthritis, unspecified hip; R06.02 Shortness of breath; M79.641 Pain in right hand; M79.642 Pain in left hand; M25.551 Pain in right hip; M25.552 Pain in left hip
CPT/HCPCS: 71046; 73521

== ENCOUNTER → 2023-12-26 | Outpatient (CLI) | payer BC, MEDICARE ==
[2023-12-27 02:56] LABS: Basophils # (A) 0.03 X 10*3/uL (0.00-0.10); Basophils % (A) 0.4 %; Eosinophils # (A) 0.19 X 10*3/uL (0.04-0.35); Eosinophils % (A) 2.4 %; HCT 40.9 % (37.2-46.3); HGB 13.4 g/dL (12.0-15.0); Lymphocytes # (A) 2.43 X 10*3/uL (0.90-5.00); Lymphocytes % (A) 30.6 %; MCH 32.1 pg (27.0-32.0); MCHC 32.8 g/dL (32.0-37.0); MCV 97.8 FL (80.0-97.0); Mean Platelet Volume 10.8 FL (9.5-12.2); Monocytes # (A) 0.76 X 10*3/uL (0.20-1.00); Monocytes % (A) 9.6 %; NRBC Per 100 WBC 0 X 10*3/uL (0.00-0.01); Neutrophils # (A) 4.52 X 10*3/uL (1.80-7.70); Neutrophils % (A) 56.7 %; Platelet Count 336 X 10*3/uL (140-440); RBC 4.18 X 10*6/uL (4.10-5.20); RDW 12.7 % (11.5-14.5); WBC 7.95 X 10*3/uL (4.50-10.00)
[2023-12-27 04:10] LABS: Erythrocyte Sedimentation Rate 20 mm/Hr (0-30)
[2023-12-27 04:50] LABS: Hepatitis C IgG Antibody Nonreactive (Nonreactive)
[2023-12-27 05:01] LABS: Hepatitis B Surface AB- Quant 3.5 mIU/mL
[2023-12-27 05:11] LABS: ALT 27 U/L (8-44); AST 30 U/L (13-35); Albumin 4.4 g/dL (3.8-4.9); Albumin/Globulin Ratio 1.76 Ratio (1.60-3.17); Alkaline Phosphatase 93 U/L (41-126); BUN/Creat Ratio 24.33 Ratio (12.00-20.00); Blood Urea Nitrogen 14.6 mg/dL (9.0-27.0); Calcium 9.2 mg/dL (8.7-10.3); Carbon Dioxide 25.3 mmol/L (21.6-31.8); Chloride 105 mmol/L (96-109); Globulin 2.5 g/dL (1.6-3.3); Glucose 97 mg/dL (70-110); Potassium 4.2 mmol/L (3.5-5.5); Rheumatoid Factor, Qnt <15 IU/mL (0-15); Sodium 143 mmol/L (135-145); T4, Free (Free Thyroxine) 1.39 ng/dL (0.80-1.80); Total Bilirubin <0.2 mg/dL (0.3-1.2); Total Protein 6.9 g/dL (6.2-8.2); Uric Acid 3.7 mg/dL (2.9-7.7)
[2023-12-27 05:53] LABS: Cyclic Citrull Pep IgG Unit <1.5 U/mL (<=3.9); Cyclic Citrullinated Pep IgG Negative
== END | disposition home or self-care (01) ==
LOC: LABWHC1 15:31
PROVIDERS: ATTEND Internal Medicine Geriatric Medicine
DX: E03.9 Hypothyroidism, unspecified (principal); M25.50 Pain in unspecified joint; M06.4 Inflammatory polyarthropathy; M81.0 Age-related osteoporosis without current pathological fracture; R23.3 Spontaneous ecchymoses; Z79.01 Long term (current) use of anticoagulants
CPT/HCPCS: 36415; 80053; 82306; 82728; 84439; 84443; 84550; 85025; 85652; 86140; 86200; 86431; 86480; 86706; 86803

== ENCOUNTER → 2024-01-01 | Outpatient (CLI) | payer BC, MEDICARE ==
--- NOTE | 2024-01-02 11:54 | BD ---
EXAMINATION TYPE: Axial Bone Density DATE OF EXAM: 01/01/2024 CLINICAL HISTORY: 68 years old Female. ICD-10 CODE: M19.019 OSTEOARTHRITIS, SHOULDER Height: 5 ft 3 in Weight: 184 FRAX RISK QUESTIONS: Alcohol (3 or more units per day): no Family History (Parent hip fracture): no Glucocorticoids (More than 3mos): yes (Ex: prednisone, prednisolone, methylprednisolone, dexamethasone, and hydrocortisone). History of Fracture in Adulthood: no Secondary Osteoporosis: 1. Type 1 Diabetes: no 2. Hyperthyroidism: no 3. Menopause before 45: yes 4. Malnutrition: no 5. Chronic liver disease: no Rheumatoid Arthritis: no Current Tobacco Use: no RISK FACTORS HISTORY OF: Surgery to Spine/Hip(right/left)/Wrist (right/left): spine x 4,carpal tunnel surg lew wrist When: 2022 MEDICATIONS: Thyroid Medications: yes Which medication: synthroid How Lon years Osteoporosis Medications: none EXAM MEASUREMENTS: Bone mineral density about the R hip (g/cm2): 0.749 Bone mineral density about the L hip (g/cm2): 0.755 T Score values are as follows: -----R Neck: -2.1 -----L Neck: -2.0 -----R Total: -1.6 -----L Total: -1.5 Z Score values are as follows: -----R Neck: -0.9 -----L Neck: -0.9 -----R Total: -0.8 -----L Total: -0.6 baseline Bone mineral density about the L Wrist (g/cm2): 0.590 T Score values are as follows: -----Dist. R+U: -1.1 -----Prox. R+U: -1.1 -----Radius total: -1.4 Z Score values are as follows: -----Dist. R+U: 0.4 -----Prox. R+U: 0.5 -----Radius total: 0.2 baseline FRAX%s: The graph provided illustrates a 17.6 % chance for a major osteoporotic fx and a 3.5 % chance for the hips probability for fx in 10 years time. IMPRESSION: Osteopenia (T Score between -2.5 and -1). There is slightly increased risk of fracture and the patient may be considered for treatment. Re-Screen 2-5 years. NOTE: T-SCORE=SD OF THE YOUNG ADULT MEAN.
== END | disposition home or self-care (01) ==
LOC: RADBDWWP 15:26
PROVIDERS: ATTEND Internal Medicine Rheumatology
DX: M85.89 Other specified disorders of bone density and structure, multiple sites (principal); M19.019 Primary osteoarthritis, unspecified shoulder; Z78.0 Asymptomatic menopausal state
CPT/HCPCS: 77080

== ENCOUNTER → 2024-01-10 | Outpatient (CLI) | payer BC, MEDICARE ==
[2024-01-10 19:20] LABS: INR 0.96 sec (0.93-1.11); Prothrombin Time 10.4 sec (9.9-11.9)
== END | disposition home or self-care (01) ==
LOC: LABPAT 11:24
PROVIDERS: ATTEND Orthopaedic Surgery
DX: Z01.812 Encounter for preprocedural laboratory examination (principal); M75.102 Unspecified rotator cuff tear or rupture of left shoulder, not specified as traumatic; Z22.322 Carrier or suspected carrier of Methicillin resistant Staphylococcus aureus
CPT/HCPCS: 36415; 85610; 87070

== ENCOUNTER 2024-01-14 08:06 | Day surgery (SDC) | payer BC, MEDICARE ==
--- NOTE | 2024-01-13 08:55 | P.HPOR ---
History of Present Illness H&P Date: 01/13/24 Chief Complaint: Left shoulder pain and weakness The patient is a 68-year-old [id number] retired female who presents with left shoulder pain and weakness. She previously undergone arthroscopic rotator cuff repair and subsequent rotator cuff debridement. She notes pain with any attempted overhead activity and at night. She tried therapy without any improvement. She notes daily pain that limits her. Review of Systems As per HPI Past Medical History Past Medical History: Asthma, COPD, Osteoarthritis (OA), Rheumatoid Arthritis (RA), Thyroid Disorder Additional Past Medical History / Comment(s): Varicose veins, hx migraines 20 yrs ago no longer, hx ulcerative colitis w/ rectal bleeding, PMR(Polymyalgia Rheumatica) with current left pinky finger swelling, last 3 toes on bilateral feet numb, hypothyroidism, left shoulder pain. History of Any Multi-Drug Resistant Organisms: None Reported Past Surgical History: Back Surgery, Section, Hysterectomy, Joint Replacement, Orthopedic Surgery, Tonsillectomy Additional Past Surgical History / Comment(s): Bilateral carpal tunnel surgery, neck surgery, 5 back surgeries including fusion and cage, right knee arthroscopy, Pain Clinic Procedure, total right knee replacement, bilat. shoulder arthroscopy, varicose vein ablation left leg Past Anesthesia/Blood Transfusion Reactions: No Reported Reaction Smoking Status: Former smoker - Past Family History Brother(s) Family Medical History: Cancer Additional Family Medical History / Comment(s): Melanoma, small cell lung cancer. Sister(s) Family Medical History: Cancer Additional Family Medical History / Comment(s): Cervical Cancer. Mother Family Medical History: Cancer, COPD Additional Family Medical History / Comment(s): MELANOMA. Father Family Medical History: COPD Medications and Allergies Home Medications Medication Instructions Recorded Confirmed Type Albuterol Nebulized [Ventolin 2.5 mg INHALATION QID PRN 12/22/14 01/08/24 History Nebulized] Montelukast [Singulair] 10 mg PO HS 12/16/16 01/08/24 History Ergocalciferol (Vitamin D2) 50,000 unit PO YU 10/25/17 01/08/24 History [Vitamin D2] Valerian Root 100 - 400 mg PO HS PRN 09/08/19 01/08/24 History Albuterol Sulfate [Ventolin HFA] 2 puff INHALATION Q6H PRN 07/10/20 01/08/24 History Budesonide-Formot 160-4.5 Mcg 2 puff INHALATION HS 07/10/20 01/08/24 History [Symbicort 160-4.5 Mcg Inhaler] diphenhydrAMINE [Benadryl] 25 mg PO HS 07/10/20 01/08/24 History Ascorbic Acid [Vitamin C] 500 mg PO DAILY tab 07/13/20 01/08/24 Rx Ibuprofen [Motrin] 600 mg PO Q6HR PRN 02/15/23 01/08/24 History Levothyroxine Sodium [Synthroid] 137 mcg PO MOTUTHFRSA 02/15/23 01/08/24 History Tolterodine [Detrol] 2 mg PO BID 02/20/23 01/08/24 History Cholecalciferol (Vitamin D3) 125 mcg PO DAILY 10/03/23 01/08/24 History [Vitamin D3 (125 MCG = 5,000 IU)] Levothyroxine Sodium 68.5 mcg PO SUWE 10/03/23 01/08/24 History Acetaminophen [Tylenol Arthritis] 2 tab PO DAILY 01/08/24 01/08/24 History estradioL [Vagifem] 10 mcg VAGINAL TUTH 01/08/24 01/08/24 History Allergies Allergy/AdvReac Type Severity Reaction Status Date / Time vitamin E (d-alpha Allergy Rash/Hives Verified 01/08/24 14:41 tocopherol) Physical Examination - Shoulder left Appearance: effusion Tenderness with palpation: anterior, bicipital groove Pain: with abduction, with forward flexion ROM: forward flexion: 20 degrees ROM: internal rotation: lower lumbar ROM: external rotation: 10 degrees Crepitus with motion: Yes Strength: abduction: 3/5 Strength: external rotation: 4/5 Tests: internal impingement tests: positive, external impingment tests: positive Results Patient is a well-developed well-nourished female proximal a 5 foot 4, 170 pounds. HEENT exam is nonfocal, neck supple. She's tender about the anterior left glenohumeral joint. She has moderate crepitus. Impingement test, Neer test, and speed tests are positive. Actively she is able to forward elevate 30, passively 150. Her distal neurovascular exam appears intact in the left upper extremity. - Diagnostic results Shoulder x-ray: image reviewed (2 views of the left shoulder obtaining show previous distal clavicular and acromial resection.) Shoulder MRI: image reviewed Assessment and Plan Assessment: Left rotator cuff arthropathy History of left shoulder arthroscopic rotator cuff repair with re-tear Plan: I talked to the patient at length regarding her condition and treatment options. At this point she has significant pain and weakness despite conservative measures after undergoing 2 previous left shoulder procedures. After a thorough discussion she opts to proceed with surgery. We'll plan to proceed with left reverse total shoulder arthroplasty. Risks and benefits were discussed at length in layman's terms.
[~2024-01-14 08:06] MED LIST changes: -DEXAMETHASONE SOD PHOSPHATE 4 MG/ML 1 ML VIAL IV ONE; -HYDROmorphone 0.5 MG/0.5 ML SYRINGE IVP PRN; -LACTATED RINGERS 1,000 ML IV SCH; +LIDOCAINE 1% (10MG/ML) FOR IV START INTRADERMA PRN; +MIDAZOLAM 2 MG/2 ML VIAL IV PRN; -ONDANSETRON 4 MG/2 ML VIAL IVP ONE; +TRANEXAMIC 1,000 MG/100ML-NACL 1,000 MG in SALINE 1 100ML.BAG IVPB PRN
[2024-01-14] MEDS: LACTATED RINGERS 1,000 ML IV SCH (08:27)
[2024-01-14] MEDS: ACETAMINOPHEN TAB 500 MG TAB PO PRN (08:59)
[2024-01-14] MEDS: MELOXICAM 7.5 MG TAB PO PRN (08:59)
[2024-01-14] MEDS: DEXAMETHASONE SOD PHOSPHATE 4 MG/ML 1 ML VIAL IV ONE (09:13)
[2024-01-14] MEDS: ONDANSETRON 4 MG/2 ML VIAL IVP ONE (09:13)
[2024-01-14] MEDS: MIDAZOLAM 2 MG/2 ML VIAL IVP ONE (09:21)
--- NOTE | 2024-01-14 09:52 | P.ANPRN ---
Procedure Note - Anesthesia - Nerve Block Performed Left Interscalene Single Date of Procedure: 01/14/24 Procedure Start Time: : Procedure Stop Time: : Indication: Acute Post-Operative Pain, Requested by Surgeon Sedation Type: Sedate with meaningful contact maintained Preparation: Sterile Prep Position: Sitting Needle Gauge: 21 Ultrasound used to visualize needle placement: Yes Ultrasound used to observe medication spread: Yes Injectate: 0.5% Ropivacaine (see comment for volume) Blood Aspirated: No Pain Paresthesia on Injection Noted: No Resistance on Injection: Normal Image Stored and Saved: Yes Events: Uneventful and Well Tolerated (20 mls)
[2024-01-14] MEDS ORDERED: LIDOCAINE 1% INJ 10MG/ML (20 ML MDV) ONE (09:53)
[2024-01-14] MEDS ORDERED: GLYCOPYRROLATE 0.2 MG/ML 2 ML VIAL ONE (09:53)
[2024-01-14] MEDS ORDERED: NEOSTIGMINE 1 MG/ML 10 ML VIAL ONE (09:53)
[2024-01-14] MEDS ORDERED: SUCCINYLCHOLINE CHLORIDE 200 MG/10 ML VIAL IV ONE (09:53)
[2024-01-14] MEDS ORDERED: fentaNYL (PF) 50 MCG/ML 2 ML AMP ONE (09:53)
[2024-01-14] MEDS ORDERED: PROPOFOL 10 MG/ML 20 ML VIAL IV ONE (09:53)
[2024-01-14] MEDS ORDERED: TRANEXAMIC 1,000 MG/100ML-NACL PREMIX BAG ONE (09:53)
[2024-01-14] MEDS ORDERED: PHENYLEPHRINE 10 MG/ML VIAL ONE (09:53)
[2024-01-14] MEDS ORDERED: HYDROmorphone (PF) 1 MG/ML ONE (09:53)
[2024-01-14] MEDS ORDERED: ROPIVACAINE 5 MG/ML 30 ML VIAL ONE (09:53)
[2024-01-14] MEDS ORDERED: ROCURONIUM 10 MG/ML (5 ML VIAL) IV ONE (09:53)
[2024-01-14] MEDS: ceFAZolin 1,000 MG in SODIUM CHLORIDE 0.9% 1,000 ML IRRIGATION ONE (10:11)
[2024-01-14] MEDS ORDERED: HYDROmorphone 0.5 MG/0.5 ML SYRINGE IVP PRN (11:38)
--- NOTE | 2024-01-14 12:11 | P.OP ---
Date of Procedure: 01/14/24 Preoperative Diagnosis: Chronic retracted left massive rotator cuff tear Left rotator cuff arthropathy Postoperative Diagnosis: Same Procedure(s) Performed: Left reverse total shoulder arthroplasty Implants: Depuy Delta Xtend size 10 press-fit humeral stem, size 1 epiphysis, 38+9 articular surface, 38 mm glenosphere, standard baseplate. Anesthesia: [facility]IJ[facility] Surgeon: Yao Velazquez Garden Consultant #1: Kishore Lei Estimated Blood Loss (ml): 100 Pathology: none sent Condition: stable Disposition: PACU Indications for Procedure: Patient is a 68-year-old female who underwent previous left rotator cuff repair presented with failure of the repair. She underwent a subsequent procedure with persistent pain and weakness. A discussion of the risks and benefits of operative intervention versus continued conservative measures was made with the patient. She opted to proceed with surgery. Operative risks include infection, neurovascular injury, development of blood clots, fracture, possible component loosening, possible instability, possible need for subsequent procedures was discussed. Informed consent was obtained. Operative Findings: As below Description of Procedure: The patient was brought to the operating room, and after induction of general anesthesia was placed in a beachchair position. The bony prominences were appropriately padded. I examined the left shoulder. There was some lack of passive forward elevation and external rotation. The left upper extremity was prepped and draped in normal fashion. The bony outlines the coracoid process, distal clavicle, and acromion were outlined with a skin marker. A pulse centimeter deltopectoral incision was made lateral to the coracoid process. Skin was incised sharply. Subcutaneous tissues were divided bluntly. Electrocautery was used for hemostasis. The cephalic vein was identified and gently retracted laterally with the deltoid. The deltopectoral was bluntly developed. Subdeltoid adhesions were then released. The self-retaining retractor was placed. The conjoined tendon was retracted medially and the deltoid laterally. The biceps was identified. Its sheath was opened. A biceps tenotomy was performed along the remaining tendon did retract distally. The subscapularis was peeled off the lesser tuberosity subperiosteally. This was tagged with #2 Ethibond suture. Pseudocapsule was excised. The head was then exposed. The shoulder was dislocated. A starting hole was made in line with the humeral shaft. The canal was reamed by hand up to size 10. There was good distal chatter. The cutting guide was then placed. I planned on 20 of retroversion. The humeral head cut was then made. The bone was removed in one fragment. Residual inferomedial osteophytes were removed flush with the [place] cortical bone. Attention was then paid towards preparing the glenoid. An anterior and posterior retractors placed. The labrum was released from the 6-12 o'clock position. Remaining biceps was removed as well. A guidepin was placed in the inferior aspect of the glenoid with the guide slightly tilting inferior. The reamer was used down to a bleeding bony surface. The central peg hole was drilled. The standard baseplate was inserted with good purchase. Inferior, superior, and posterior locking screws the appropriate length were placed. Good purchase was obtained. The 38 mm glenosphere was inserted over a guidewire. This was fully seated. Care was taken to avoid any soft tissue interposition. Attention was then paid towards preparing the proximal humerus. The appropriate broach was placed and 20 of retroversion and was fully seated. An eccentric size 1 epiphyseal reamer was utilized. A size 10 stem with a size 1 epiphysis was placed and 20 of retroversion. Trial reduction was obtained with a 38 mm + 9 articular surface. The shoulder was taken through range of motion. He was felt to be stable in flexion and extension with internal and external rotation. I felt there was adequate mormon of soft tissue tension judging off the conjoined tendon. The shoulder was gently dislocated. The trial components were then removed. The final size 10 press-fit stem along with a size 1 epiphysis was fully seated. There was good rotational stability. The 38 mm + 9 articular surface was impacted. The shoulder again was gently reduced and taken through range of motion. Again it was felt to be stable in all planes. Pulsatile lavage was utilized. The subscapularis was a attached to the lesser tuberosity with #2 Ethibond suture. The deltopectoral interval was closed with interrupted 2-0 Vicryl sutures. The skin was reapproximated with 3-0 subcuticular Prolene suture. Steri-Strips were applied. A sterile dressing was applied. A sling was placed. The patient was awoken from general anesthesia and transferred to recovery room in good condition. Blood loss was estimated at 100 mL. No complications were incurred. Sponge and needle counts were correct at the end the case. Kishore BROOKS assisted during the major components of the case to include exposure, glenoid and humeral preparation, implantation, and closure.
[2024-01-14] MEDS: HYDROmorphone 0.5 MG/0.5 ML SYRINGE IVP PRN ×2 (12:20→19:55)
[2024-01-14] MEDS: LACTATED RINGERS 1,000 ML IV ONE ×2 (12:21→15:01)
--- NOTE | 2024-01-14 13:16 | XR ---
EXAMINATION TYPE: XR shoulder limited 1 view LT DATE OF EXAM: 01/14/2024 COMPARISON: NONE HISTORY: 68-year-old female status post reverse left shoulder arthroplasty, postoperative evaluation FINDINGS: Single image shows placement of reverse left shoulder arthroplasty. Both glenosphere and hu meral stem components of the prosthesis appear well seated without periprosthetic fracture. Alignment appears appropriate. Soft tissue air related to recent operation. ACDF hardware. Strandy atelectasis left base. IMPRESSION: Uncomplicated postoperative appearance reverse left shoulder arthroplasty.
[2024-01-14] MEDS: HYDROcodone/APAP 5-325MG 1 EACH TAB PO PRN ×2 (15:23→23:12)
[2024-01-14] MEDS ORDERED: ALBUTEROL NEBULIZED 2.5 MG/3 ML INHALATION PRN (18:03)
[2024-01-14] MEDS ORDERED: ALBUTEROL HFA INHALER INHALATION PRN (18:03)
[2024-01-14] MEDS: MONTELUKAST 10 MG TAB PO SCH (19:56)
[2024-01-14] MEDS: diphenhydrAMINE 25 MG CAP PO SCH (19:56)
[2024-01-14] MEDS: SYMBICORT 160-4.5 MCG INHALER INHALATION SCH (21:28)
[2024-01-14] MEDS: BUTALB/APAP/CAFF 50-325-40MG TAB PO PRN (22:02)
[2024-01-15] MEDS: LEVOTHYROXINE 137 MCG TAB PO SCH (05:58)
[2024-01-15] MEDS: hydrOXYzine pamoate 25 MG CAP PO PRN (06:00)
--- NOTE | 2024-01-15 06:53 | P.CONS ---
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 Patient had tried injection, physical therapy, more conservative management without help, apparently patient had to procedure with arthroscopy both did not take did not help then was referred to Dr. Velazquez. Was seen and evaluated and had an MRI of the shoulder which shows severe massive Rotator Cuff. Patient Was Scheduled for Elective Left Reverse Total Shoulder Arthroplasty Which Was Done Successfully Today Patient Is Resting Comfortably Hemodynamically Stable. And Prepare for Surgery She Had Medical Clearance All Lab Blood Work and EKG Came Back with No Major Abnormality She Had Normal CBC, Low C-Reactive Protein, Normal chemistry with GFR of 98, normal electrolyte panel with sed rate 20 normal ferritin level PT/INR rheumatoid factor was low and normal thyroid. Also EKG shows normal sinus rhythm with pulse rate [address] with no major acute ST or T abnormality. Patient was hospitalized after his surgery for overnight stay to be watched hemodynamically to control her pain. REVIEW OF SYSTEMS: CONSTITUTIONAL: Well-developed no acute respiratory distress. EYES: No icterus sclerae, no conjunctivitis. EARS, NOSE, MOUTH, THROAT, and FACE: No sore throat, lymphadenopathy, carotid bruits or deformity. RESPIRATORY: Positive shortness of breath mild cough and wheezes. CARDIOVASCULAR: Positive PND orthopnea palpitation no angina. GASTROINTESTINAL: No Abd pain, Nausea or vomiting, no Diarrhea or constipation, No GI Bleed, no distention or masses. GENITOURINARY: Negative for Hematuria or UTI, no kidney stones. INTEGUMENT/BREAST: Generalized arthralgia and myalgia worsening in the upper extremity.. HEMATOLOGIC/LYMPHATIC: Negative for bleed or purpura. MUSCULOSKELTAL: Negative for Myalgia or arthralgia. NEURLOGICAL: No LOC, Sz or syncope, blurred vision dizziness or abnormality.. BEHAVIORAL/PSYCH: Negative. ENDOCRINE: Negative. PHYSICAL EXAMINATION: General Appearance: Mildly overweight no acute respiratory distress. Neck HEENT: Supple, no lymphadenopathy, no thyroid enlargement, no carotid bruits. Lungs: Decreased breath sound bilaterally with fine rhonchi no crackles pause mild expiratory wheezes. Chest Wall: Decreased expansion with deep inspiration no tenderness and no deformity was found on exam, no costochondral pain or discomfort. Heart: Regular rate and rhythm, S1, S2, positive PVCs, no murmur, rub or gallop. Back: Symmetric, no curvature, ROM normal, no CVA tenderness. Abdomen: Soft, non-tender, bowel sounds active all four quadrants, no masses, no organomegaly. Extremities: Generalized arthralgia, left shoulder has dressing at this point with no sign of bleeding. Pulses: 2+ and symmetric. Skin: Skin color, texture, tugor normal, no rashes or lesions. Neurologic: Alert oriented x3 cranial nerves II through XII intact, no motor deficit, no abnormal balance or gait. ASSESSMENT AND PLAN: _Left reverse total shoulder arthroplasty: Successful procedure with no com plication, will watch patient hemodynamic status carefully, resume home meds, continue GI, DVT and pulmonary prophylaxis protocol. _Advanced COPD: Remain on combination of ipratropium albuterol along with the Pulmicort was trialed on Trelegy before and patient did not stay on it she also had rescue inhaler as well. Continue medication, continue O2 try to keep her pulse ox above 92 percentile. _Hypothyroidism: Continue patient on levothyroxine 137 mcg. _Chronic pain syndrome: Has been on hydrocodone and ibuprofen along with baclofen. _Recurrent polymyalgia rheumatica with no flareup lately with her sed rate and C-reactive protein were very normal before her surgery, patient has been off prednisone at this point and has been doing well on anti-inflammatory medication on as-needed basis only. _Chronic edema: Will continue Dyazide on demand stable and doing well. _? Of rheumatoid arthritis: Seen rheumatology has been off any biological agent or methotrexate. _GI prophylaxis: Patient be on Pepcid 20 mg daily. _DVT prophylaxis: Knee-high PRAVIN hose Venodyne boots. Early mobilization as well no need for any heparin subcutaneous or any anticoagulation. _Pain management: Continue smaller dose of Dilaudid for the night along with hydrocodone orally on as-needed basis. CODE STATUS: Full code. Dr. Velazquez thank you much for the consult more than happy to see this patient along with you in the hospital if I can be any further help to please let me know. Past Medical History Past Medical History: Asthma, COPD, Osteoarthritis (OA), Rheumatoid Arthritis (RA), Thyroid Disorder Additional Past Medical History / Comment(s): Varicose veins, hx migraines 20 yrs ago no longer, hx ulcerative colitis w/ rectal bleeding, PMR(Polymyalgia Rheumatica) with current left pinky finger swelling, last 3 toes on bilateral feet numb, hypothyroidism, left shoulder pain. History of Any Multi-Drug Resistant Organisms: None Reported Past Surgical History: Back Surgery, Section, Hysterectomy, Joint Replacement, Orthopedic Surgery, Tonsillectomy Additional Past Surgical History / Comment(s): Bilateral carpal tunnel surgery, neck surgery, 5 back surgeries including fusion and cage, right knee arthroscopy, Pain Clinic Procedure, total right knee replacement, bilat. shoulder arthroscopy, varicose vein ablation left leg Past Anesthesia/Blood Transfusion Reactions: No Reported Reaction Smoking Status: Former smoker - Past Family History Brother(s) Family Medical History: Cancer Additional Family Medical History / Comment(s): Melanoma, small cell lung cancer. Sister(s) Family Medical History: Cancer Additional Family Medical History / Comment(s): Cervical Cancer. Mother Family Medical History: Cancer, COPD Additional Family Medical History / Comment(s): MELANOMA. Father Family Medical History: COPD Medications and Allergies Home Medications Medication Instructions Recorded Confirmed Type Albuterol Nebulized [Ventolin 2.5 mg INHALATION QID PRN 12/22/14 01/14/24 History Nebulized] Montelukast [Singulair] 10 mg PO HS 12/16/16 01/14/24 History Ergocalciferol (Vitamin D2) 50,000 unit PO YU 10/25/17 01/14/24 History [Vitamin D2] Valerian Root 100 - 400 mg PO HS PRN 09/08/19 01/14/24 History Albuterol Sulfate [Ventolin HFA] 2 puff INHALATION Q6H PRN 07/10/20 01/14/24 History Budesonide-Formot 160-4.5 Mcg 2 puff INHALATION HS 07/10/20 01/14/24 History [Symbicort 160-4.5 Mcg Inhaler] diphenhydrAMINE [Benadryl] 25 mg PO HS 07/10/20 01/14/24 History Ascorbic Acid [Vitamin C] 500 mg PO DAILY tab 07/13/20 01/14/24 Rx Ibuprofen [Motrin] 600 mg PO Q6HR PRN 02/15/23 01/14/24 History Levothyroxine Sodium [Synthroid] 137 mcg PO MOTUTHFRSA 02/15/23 01/14/24 History Tolterodine [Detrol] 2 mg PO BID 02/20/23 01/14/24 History Cholecalciferol (Vitamin D3) 125 mcg PO DAILY 10/03/23 01/14/24 History [Vitamin D3 (125 MCG = 5,000 IU)] Levothyroxine Sodium 68.5 mcg PO SUWE 10/03/23 01/14/24 History Acetaminophen [Tylenol Arthritis] 2 tab PO DAILY 01/08/24 01/14/24 History estradioL [Vagifem] 10 mcg VAGINAL TUTH 01/08/24 01/14/24 History Allergies Allergy/AdvReac Type Severity Reaction Status Date / Time vitamin E (d-alpha Allergy Rash/Hives Verified 01/14/24 08:38 tocopherol) Physical Exam Vitals: Vital Signs Temp Pulse Pulse Resp BP Pulse Ox 01/14/24 15:20 97.9 F 88 17 146/79 93 L 01/14/24 14:30 76 16 129/78 96 01/14/24 14:00 78 16 128/62 96 01/14/24 13:45 64 16 122/56 96 01/14/24 13:30 64 16 126/60 96 01/14/24 13:15 80 15 122/60 92 L 01/14/24 13:00 70 16 122/60 96 01/14/24 12:45 86 17 148/65 91 L 01/14/24 12:30 80 16 146/65 99 01/14/24 12:15 70 16 151/67 99 01/14/24 11:58 98 F 87 18 179/77 99 01/14/24 09:34 75 18 142/67 97 01/14/24 08:28 97.5 F L 77 18 187/95 97 Intake and Output 01/14/24 01/14/24 01/14/24 06:59 14:59 22:59 Intake Total 1751 Output Total 100 Balance 1651 Intake: IV 1751 Output: Estimated Blood Loss 100 Other: # Voids 2 Weight 84.2 kg
[2024-01-15 08:02] VITALS: BP 152/87; PULSE 83; RESP 17; TEMP 99.2
[2024-01-15] MEDS: ACETAMINOPHEN TAB 325 MG TAB PO SCH (08:18)
[2024-01-15] MEDS: SENNOSIDES-DOCUSATE SODIUM 1 EACH TAB PO PRN (08:19)
[2024-01-15] MEDS: ASCORBIC ACID 500 MG TAB PO SCH (08:19)
[2024-01-15] MEDS: CHOLECALCIFEROL 125 MCG (5000 IU) TABLET PO SCH (08:19)
[2024-01-15] MEDS: OXYBUTYNIN XL 5 MG TAB.ER.24 PO SCH (08:19)
[2024-01-15] MEDS: ASPIRIN 325 MG TAB PO SCH (08:19)
--- NOTE | 2024-01-15 10:56 | P.DS ---
Providers Date of admission: 01/14/2024 Expected date of discharge: 01/15/24 Attending physician: Yao Velazquez Consults: 01/14/24 11:40 Consult Physician Routine Consulting Provider: Franco Lagunas Reason/Comments: Medical Management s/p reverse left total shoulder arthroplasty Do you want consulting provider notified?: Yes Primary care physician: Franco Lagunas Hospital Course: Date of admission: 01/14/2024 Date of discharge: 01/15/2024 Admission diagnosis: Chronic retracted left massive rotator cuff tear Left rotator cuff arthropathy Discharge diagnosis: Same Attending physician: Dr. Velazquez Surgical procedures: Reverse left total shoulder arthroplasty Brief history: Patient is a 68-year-old female with a history of Chronic retracted left massive rotator cuff tear; Left rotator cuff arthropathy. At this point patient has failed conservative treatment measures and has opted to proceed with a elective reverse left total shoulder arthroplasty. Hospital course: Details of patient's surgery can be found in operative report. Patient tolerated the procedure well and was subsequently transported to orthopedic floor. Patient's orthopeidc and medical care was provided daily. Patient had daily laboratory tests performed for evaluation of overall blood counts. Patient had daily physical therapy to include strengthening range of motion as well as education with walker ambulation. Patient was treated with aspirin for their postoperative DVT prophylaxis during their inpatient stay. Patient was noted to have a relatively uneventful postoperative course. Patient reported satisfactory pain control with oral pain medications by postoperative day 1. Patient showed satisfactory progress with physical therapy. Patient moved steadily through the program and had no difficulty meeting the goals by postoperative day 1. Given patient's otherwise satisfactory course and having met physical therapy goals, plan is to discharge patient home on postoperative day 1. Discharge condition/disposition: Patient will be discharged home in stable condition. Discharge medications: Instructions are given on resumption of patient's normal daily medications per primary care recommendation, in addition patient will be prescribed aspirin 325 mg daily x 30 days; senna. Patient receiving pain medication from pain management doctor. Orthopedic Discharge Instructions: 1. Wound care and infection precautions, keep incision dry and covered while showering, no lotions, creams, moisturizers. No soaking, pools, hot tubs. Do not scrub over incision. 2. Non-weight bearing left upper extremity. 3. Ice when necessary. Do not exceed 20 minutes per hour with ice pack. 4. Utilize sling to left upper extremity until seen at first follow up appointment. 5. Pain meds and anticoagulants per prescription. 6. Pain medication has potential to cause constipation. Increase oral fluid and fiber intake. Contact primary care provider if you have not had a bowel movement within 48 hours after discharge. 7. No anti-inflammatory medication until discussed at first post operative visit, this including Motrin, Aleve, Mobic, Diclofenac. 8. Follow up in office at 2 weeks postop with Fabian Jefferson PA-C / Kishore Lei PA-C 9. Follow up with your primary care doctor 7-10 days after discharge. 10. Contact [facility] with any questions, . Keep incision clean, dry, intact. While showering, cover incision with Saran wrap. Keep steri-strips on until follow-up appointment in office in 2 weeks. Assessment: Chronic retracted left massive rotator cuff tear Left rotator cuff arthropathy Procedures: Reverse left total shoulder arthroplasty Patient Condition at Discharge: Good Plan - Discharge Summary Discharge Rx Participant: Yes New Discharge Prescriptions: New Aspirin 325 mg PO DAILY #28 tab Sennosides/Docusate Sodium [Senna Plus 8.6-50 mg Softgel] 1 each PO DAILY #20 capsule No Action Albuterol Nebulized [Ventolin Nebulized] 2.5 mg INHALATION QID PRN PRN Reason: asthma Montelukast [Singulair] 10 mg PO HS Ergocalciferol (Vitamin D2) [Vitamin D2] 50,000 unit PO YU Valerian Root 100 - 400 mg PO HS PRN PRN Reason: sleep Albuterol Sulfate [Ventolin HFA] 2 puff INHALATION Q6H PRN PRN Reason: Shortness Of Breath Budesonide-Formot 160-4.5 Mcg [Symbicort 160-4.5 Mcg Inhaler] 2 puff INHALATION HS diphenhydrAMINE [Benadryl] 25 mg PO HS Ascorbic Acid [Vitamin C] 500 mg PO DAILY tab Cholecalciferol (Vitamin D3) [Vitamin D3 (125 MCG = 5,000 IU)] 125 mcg PO DAILY Ibuprofen [Motrin] 600 mg PO Q6HR PRN PRN Reason: Pain Levothyroxine Sodium [Synthroid] 137 mcg PO MOTUTHFRSA Tolterodine [Detrol] 2 mg PO BID Levothyroxine Sodium 68.5 mcg PO SUWE estradioL [Vagifem] 10 mcg VAGINAL TUTH Acetaminophen [Tylenol Arthritis] 2 tab PO DAILY Discharge Medication List Albuterol Nebulized [Ventolin Nebulized] 2.5 mg INHALATION QID PRN 12/22/14 [History] Montelukast [Singulair] 10 mg PO HS 12/16/16 [History] Ergocalciferol (Vitamin D2) [Vitamin D2] 50,000 unit PO YU 10/25/17 [History] Valerian Root 100 - 400 mg PO HS PRN 09/08/19 [History] Albuterol Sulfate [Ventolin HFA] 2 puff INHALATION Q6H PRN 07/10/20 [History] Budesonide-Formot 160-4.5 Mcg [Symbicort 160-4.5 Mcg Inhaler] 2 puff INHALATION HS 07/10/20 [History] diphenhydrAMINE [Benadryl] 25 mg PO HS 07/10/20 [History] Ascorbic Acid [Vitamin C] 500 mg PO DAILY tab 07/13/20 [Rx] Ibuprofen [Motrin] 600 mg PO Q6HR PRN 02/15/23 [History] Levothyroxine Sodium [Synthroid] 137 mcg PO MOTUTHFRSA 02/15/23 [History] Tolterodine [Detrol] 2 mg PO BID 02/20/23 [History] Cholecalciferol (Vitamin D3) [Vitamin D3 (125 MCG = 5,000 IU)] 125 mcg PO DAILY 10/03/23 [History] Levothyroxine Sodium 68.5 mcg PO SUWE 10/03/23 [History] Acetaminophen [Tylenol Arthritis] 2 tab PO DAILY 01/08/24 [History] estradioL [Vagifem] 10 mcg VAGINAL TUTH 01/08/24 [History] Aspirin 325 mg PO DAILY #28 tab 01/15/24 [Rx] Sennosides/Docusate Sodium [Senna Plus 8.6-50 mg Softgel] 1 each PO DAILY #20 capsule 01/15/24 [Rx] Follow up Appointment(s)/Referral(s): Kishore Lei PAC [PHYSICIAN [employer]ING C[employer] LATHE OPERATOR] - 01/29/24 10:50 am (with Marcus) Activity/Diet/Wound Care/Special Instructions: Orthopedic Discharge Instructions: 1. Wound care and infection precautions, keep incision dry and covered while showering, no lotions, creams, moisturizers. No soaking, pools, hot tubs. Do not scrub over incision. 2. Non-weight bearing left upper extremity. 3. Ice when necessary. Do not exceed 20 minutes per hour with ice pack. 4. Utilize sling to left upper extremity until seen at first follow up appointment. 5. Pain meds and anticoagulants per prescription. 6. Pain medication has potential to cause constipation. Increase oral fluid and fiber intake. Contact primary care provider if you have not had a bowel movement within 48 hours after discharge. 7. No anti-inflammatory medication until discussed at first post operative visit, this including Motrin, Aleve, Mobic, Diclofenac. 8. Follow up in office at 2 weeks postop with Fabian Jefferson PA-C / Kishore Lei PA-C 9. Follow up with your primary care doctor 7-10 days after discharge. 10. Contact [facility] with any questions, . Keep incision clean, dry, intact. While showering, cover incision with Saran wrap. Keep steri-strips on until follow-up appointment in office in 2 weeks. Discharge Disposition: HOME SELF-CARE
--- NOTE | 2024-01-15 11:24 | P.PN ---
Subjective Progress Note Date: 01/15/24 Principal diagnosis: Chronic retracted left massive rotator cuff tear Left rotator cuff arthropathy Patient was seen at bedside this morning lying Psorcon position with dressing present to left shoulder in sling present to left upper extremity. Patient says she has been up walking since surgery yesterday without issue. Patient denies any issues with nausea or dizziness. Patient says she has urinated without issue since surgery. Patient says her will be able to help her out when she goes home. Patient denies any other complaints at this time. Patient denies chest pain, fever, nausea, shortness of breath. Objective - Vital Signs Vital signs: Vital Signs Temp 99.2 F 01/15/24 06:59 Pulse 83 01/15/24 06:59 Resp 17 01/15/24 06:59 BP 152/87 01/15/24 06:59 Pulse Ox 95 01/15/24 06:59 FiO2 Intake & Output 01/14/24 01/15/24 01/15/24 18:59 06:59 18:59 Intake Total 1751 Output Total 100 Balance 1651 Weight 84.2 kg Intake: IV 1751 Output: Estimated Blood Loss 100 Other: # Voids 2 3 1 - Exam Left shoulder: Incision is clean, dry, and intact. Sling presents for left upper extremity. the bulky dressing is in good condition. There is minimal soft tissue swelling and ecchymosis surrounding the medial and lateral aspects of the incision. Calf is soft, no tenderness with palpation. Plantar flexion, dorsiflexion, EHL, FHL are intact. Sensory exam to light touch throughout the extremity is intact, dorsal pedis pulses 2+. Assessment and Plan Assessment: 1. Chronic retracted left massive rotator cuff tear Left rotator cuff arthropathy -Postop day 1 status post reverse left total shoulder arthroplasty Plan: 1. Chronic retracted left massive rotator cuff tear; Left rotator cuff arthropathy -reverse left total shoulder arthroplasty from yesterday, 01/14/2024.. Patient stable at bedside this morning with bulky dressing present to the left shoulder and sling present over the left upper extremity. Patient pain well-controlled. Discharge home today. 2. Appreciate medical management 3. Pain management -[place]; Dilaudid only as needed 4. DVT prophylaxis -aspirin 5. GI prophylaxis -senna 6. PT/OT -nonweightbearing left lower extremity. Maintain left upper extremity to sling at all times. 7. Encourage incentive spirometer use 8. Discharge planning -home today Time with Patient: Less than 30
--- NOTE | 2024-01-16 06:21 | P.PN ---
Subjective Progress Note Date: 01/15/24 HISTORY OF PRESENT ILLNESS: 68-year-old office patient for many years with active medical history of COPD, hypothyroidism, polymyalgia rheumatica, hyperlipidemia, chronic pain syndrome, hyperglycemia, severe generalized osteoarthritis with worsening pain and discomfort left shoulder with previous injury which patient has been dealing with with conservative management for the last few years. Patient had tried injection, physical therapy, more conservative management without help. Was seen and evaluated with Dr. Velazquez had MRI of the shoulder which shows severe massive Rotator Cuff. Patient Was Scheduled for Elective Left Reverse Total Shoulder Arthroplasty Which Was Done Successfully Today Patient Is Resting Comfortably Hemodynamically Stable. And Prepare for Surgery She Had Medical Clearance All Lab Blood Work and EKG Came Back with No Major Abnormality She Had Normal CBC, Low C-Reactive Protein, Normal chemistry with GFR of 98, normal electrolyte panel with sed rate 20 normal ferritin level PT/INR rheumatoid factor was low and normal thyroid. Also EKG shows normal sinus rhythm with pulse rate [address] with no major acute ST or T abnormality. Patient was hospitalized after his surgery for overnight stay to be watched hemodynamically to control her pain. 01/15/2024: Patient has done very well continue to have quite good pain could not rest and sleep with the night, her COPD and breathing is much better continue her ipratropium albuterol and Pulmicort still on O2. Pain is slightly better management hydrocodone without hydromorphone. Patient is asking about results of testing done from morning specially for blood work and her bone density before surgery they all seems to do well she had mild osteopenia not osteoporosis with her testing. Continue treatment with a sling continue pain management patient be able to discharge home today. REVIEW OF SYSTEMS: CONSTITUTIONAL: Well-developed no acute respiratory distress. EYES: No icterus sclerae, no conjunctivitis. EARS, NOSE, MOUTH, THROAT, and FACE: No sore throat, lymphadenopathy, carotid bruits or deformity. RESPIRATORY: Positive shortness of breath mild cough and wheezes. CARDIOVASCULAR: Positive PND orthopnea palpitation no angina. GASTROINTESTINAL: No Abd pain, Nausea or vomiting, no Diarrhea or constipation, No GI Bleed, no distention or masses. GENITOURINARY: Negative for Hematuria or UTI, no kidney stones. INTEGUMENT/BREAST: Generalized arthralgia and myalgia worsening in the upper extremity.. HEMATOLOGIC/LYMPHATIC: Negative for bleed or purpura. MUSCULOSKELTAL: Negative for Myalgia or arthralgia. NEURLOGICAL: No LOC, Sz or syncope, blurred vision dizziness or abnormality.. BEHAVIORAL/PSYCH: Negative. ENDOCRINE: Negative. PHYSICAL EXAMINATION: General Appearance: Mildly overweight no acute respiratory distress. Neck HEENT: Supple, no lymphadenopathy, no thyroid enlargement, no carotid bruits. Lungs: Decreased breath sound bilaterally with fine rhonchi no crackles pause mild expiratory wheezes. Chest Wall: Decreased expansion with deep inspiration no tenderness and no deformity was found on exam, no costochondral pain or discomfort. Heart: Regular rate and rhythm, S1, S2, positive PVCs, no murmur, rub or gallop. Back: Symmetric, no curvature, ROM normal, no CVA tenderness. Abdomen: Soft, non-tender, bowel sounds active all four quadrants, no masses, no organomegaly. Extremities: Generalized arthralgia, left shoulder has dressing at this point with no sign of bleeding. Pulses: 2+ and symmetric. Skin: Skin color, texture, tugor normal, no rashes or lesions. Neurologic: Alert oriented x3 cranial nerves II through XII intact, no motor deficit, no abnormal balance or gait. ASSESSMENT AND PLAN: _Left reverse total shoulder arthroplasty: Continue pain management continue mobility continue sling. _Advanced COPD: Remain on combination of ipratropium albuterol along with the Pulmicort was trialed on Trelegy before and patient did not stay on it she also had rescue inhaler as well. Continue medication, continue O2 try to keep her pulse ox above 92 percentile. _Hypothyroidism: Continue patient on levothyroxine 137 mcg. _Chronic pain syndrome: Has been on hydrocodone and ibuprofen along with baclofen. Patient seems to tolerate her medication back to her oral regime very well. _Recurrent polymyalgia rheumatica with no flareup lately with her sed rate and C -reactive protein were very normal before her surgery, patient has been off prednisone at this point and has been doing well on anti-inflammatory medication on as-needed basis only. _Chronic edema: Swelling is down cut down on salt and continue Dyazide. _? Of rheumatoid arthritis: Still seeing perinatal director at [facility] seems to do well just testing done recently. _GI prophylaxis: Patient be on Pepcid 20 mg daily. _DVT prophylaxis: Knee-high PRAVIN hose Venodyne boots. Early mobilization as well no need for any heparin subcutaneous or any anticoagulation. _Pain management: Continue smaller dose of Dilaudid for the night along with hydrocodone orally on as-needed basis. Discharge planning: Patient is doing very well hopefully after doing physical therapy will be able to go home today. Objective - Vital Signs Vital signs: Vital Signs Temp 98.9 F 01/15/24 00:46 Pulse 73 01/15/24 00:46 Resp 15 01/15/24 00:46 BP 135/69 01/15/24 00:46 Pulse Ox 96 01/15/24 00:46 FiO2 Intake & Output 01/14/24 01/14/24 01/15/24 06:59 18:59 06:59 Intake Total 1751 Output Total 100 Balance 1651 Weight 84.2 kg Intake: IV 1751 Output: Estimated Blood Loss 100 Other: # Voids 2 3
[2024-01-16] MEDS ORDERED: LEVOTHYROXINE 137 MCG TAB PO SCH (06:30)
[2024-01-19] MEDS ORDERED: ERGOCALCIFEROL 1,250 MCG (50,000 IU) CAPSULE PO SCH (09:00)
== END 2024-01-15 12:18 | disposition home or self-care (01) ==
LOC: OR 08:06 → 4SSUR 11:58 → OR 01-15 12:18
PROVIDERS: ATTEND Orthopaedic Surgery
DX: M75.102 Unspecified rotator cuff tear or rupture of left shoulder, not specified as traumatic (principal); M06.9 Rheumatoid arthritis, unspecified; M35.3 Polymyalgia rheumatica; J44.89 Other specified chronic obstructive pulmonary disease; G89.4 Chronic pain syndrome; G89.18 Other acute postprocedural pain; E78.5 Hyperlipidemia, unspecified; E03.9 Hypothyroidism, unspecified; M85.80 Other specified disorders of bone density and structure, unspecified site; Z79.51 Long term (current) use of inhaled steroids; Z79.82 Long term (current) use of aspirin; Z79.890 Hormone replacement therapy; Z87.891 Personal history of nicotine dependence; Z79.899 Other long term (current) drug therapy
CPT/HCPCS: 94640; 64415; 73020; 23472; C1776; J2250; J1100; J0690 ×3; J2405; J1170 ×2